=== PATIENT | female | born 1995 | race Caucasian/White ===

== ENCOUNTER 2016-08-07 13:59 | Day surgery (SDC) | payer OTHER ==
[2016-08-07] MEDS ORDERED: ceFAZolin 1 GM VIAL ONE (14:10)
[2016-08-07] MEDS ORDERED: LACTATED RINGERS 1,000 ML IV ONE ×2 (14:45→16:51)
[2016-08-07] MEDS ORDERED: ONDANSETRON 4 MG/2 ML VIAL IVP ONE (16:00)
[2016-08-07] MEDS ORDERED: LIDOCAINE-MPF 2% 5 ML VIAL IM ONE (16:00)
[2016-08-07] MEDS ORDERED: PROPOFOL 200 MG/20 ML VIAL IVP ONE (16:00)
[2016-08-07] MEDS ORDERED: DEXAMETHASONE 4 MG/ML VIAL IVP ONE (16:00)
[2016-08-07] MEDS ORDERED: fentaNYL 100 MCG/2 ML VIAL IVP ONE (16:00)
[2016-08-07] MEDS ORDERED: MIDAZOLAM 2 MG/2 ML VIAL IVP ONE (16:00)
[2016-08-07] MEDS ORDERED: HYDROcod/ACETAM 10 MG/325 MG TABLET ONE (17:19)
== END 2016-08-07 14:00 | disposition home or self-care (01) ==
PROC: 0U9LXZZ Drainage of Vestibular Gland, External Approach (ICD-10-PCS; principal; 2016-08-07 15:00)
DX: N75.1 Abscess of Bartholin's gland (principal)
CPT/HCPCS: 56440; 81025; A9270; J7120

== ENCOUNTER 2017-06-21 12:25 | Emergency (ER) | payer OTHER ==
[2017-06-21] MEDS ORDERED: HYDROmorphone 1 MG/ML SYRINGE IM STA (12:38)
--- NOTE | 2017-06-21 12:39 | ED Physician Documentation ---
PD HPI FEMALE - Stated complaint Stated Complaint: FEMALE - Chief complaint Chief Complaint: UTI - History obtained from History obtained from: Patient - History of Present Illness Timing - onset: Other (She has recurrent Bartholin's cyst and abscesses. She had an incision and drainage of one on at an urgent care clinic and [place]. She has had much more pain with this then she usually has had with other Bartholin's cyst incision and drainages. No fever though. 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 - Present Medications Home Medications: Ambulatory Orders Medication Instructions Recorded Confirmed HYDROcod/ACETAM 5/325 [[place] 5/325] 1 - 2 ea PO Q6H PRN #15 tablet 06/21/17 - Allergies Allergies/Adverse Reactions: Allergies Allergy/AdvReac Type Severity Reaction Status Date / Time No Known Drug Allergies Allergy Verified 06/21/17 12:30 - Social History Does the pt smoke?: No Smoking Status: Never smoker Does the pt drink ETOH?: No Does the pt have substance abuse?: No - Immunizations Immunizations are current?: Yes - POLST Patient has POLST: No PD ED PE NORMAL - Vitals Vital signs reviewed: Yes - General General: Alert and oriented X 3, Other (She appears to be in pain and she is tearful.) - Abdomen Abdomen: Soft, Non tender - Female Female : Vp Ancillary present (Dee Johns RN), Other (Golf ball sized left labial abscess) - Derm Derm: Normal color, Warm and dry - Extremities Extremities: No edema, No calf tenderness / cord - Neuro Neuro: Alert and oriented X 3, Normal speech - Psych Psych: Normal mood, Normal affect Results - Vitals Vitals: Vital Signs - 24 hr 06/21/17 06/21/17 06/21/17 12:27 13:00 13:20 Temperature 36.8 C 37.0 C Heart Rate 79 81 73 Respiratory 18 18 16 Rate Blood Pressure 130/83 H 129/87 H O2 Saturation 100 99 06/21/17 06/21/1706/21/17 13:35 13:43 13:53 Temperature Heart Rate 73 137 H 92 Respiratory 16 16 12 Rate Blood Pressure 138/86 H 134/97 H 122/66 O2 Saturation 100 100 100 06/21/17 06/21/17 06/21/17 14:08 14:25 15:06 Temperature Heart Rate 114 H 76 105 H Respiratory 24 16 12 Rate Blood Pressure 135/91 H 125/83 H 120/65 O2 Saturation 100 100 100 06/21/17 06/21/17 06/21/17 15:30 16:23 17:30 Temperature 36.7 C Heart Rate 92 80 88 Respiratory 12 12 Rate Blood Pressure 103/56 L 100/61 109/66 O2 Saturation 100 100 100 06/21/17 18:24 Temperature Heart Rate 84 Respiratory 18 Rate Blood Pressure 104/62 O2 Saturation 99 Oxygen O2 Source Room air Oxygen Flow Rate 2.5 Procedures - Abscess I&D (location) Left bartholins cyst Preparation: Betadine, Lidocaine 1%, Conscious sedation Incision: Incised with scalpel, Purulent drainage (a lot), Loculations broken, Packed (with word catheter) Other: Pt tolerated well, Dressing applied. No: Antibiotic prescribed (already on keflex) - Procedural sedation Sedation prep: Informed consent, Time out completed, Last meal (none today), AHA 1 - healthy, IV O2 monitor, ET CO2 monitor, RT present Sedation medications: ketamine (140mg) Patient status during sedation: Responds to tactile, Vitals remained stable ( other than tachycardia), Maintained airway. No: Respiratory depression, Hypoxia , Needed resp assistance PD MEDICAL DECISION MAKING - ED course ED course: She has a very large Bartholin's abscess, she was sedated for incision and drainage which went well and a Word catheter was placed. She had a fairly long return to normal and some emergence phenomenon which was treated with divided doses of Ativan. Departure - Departure Disposition: 01 Home, Self Care Clinical Impression: Abscess of Bartholin's gland Condition: Good Record reviewed to determine appropriate education?: Yes Instructions: ED Bartholins Cyst IandD Follow-Up: Yenny Nobles DO [Provider Admit Priv/Credential] - Prescriptions: HYDROcod/ACETAM 5/325 [[place] 5/325] 1 - 2 ea PO Q6H PRN #15 tablet PRN Reason: Pain Comments: Continue the antibiotic that you are taking. Return if worse. Follow-up with the cosmetology instructor, Dr. Almonte is retiring soon but I put his partner's name on this form.
[2017-06-21] MEDS ORDERED: HYDROmorphone 1 MG/ML SYRINGE ONE (12:56)
[2017-06-21] MEDS ORDERED: SODIUM CHLORIDE 0.9% 1,000 ML IV ONE (13:15)
[2017-06-21] MEDS ORDERED: KETAMINE 500 MG/10 ML VIAL ONE (13:34)
[2017-06-21] MEDS ORDERED: BUFFERED LIDOCAINE 10 ML SYRINGE ONE (13:34)
[2017-06-21] MEDS ORDERED: KETAMINE 500 MG/10 ML VIAL IVP STA (13:47)
[2017-06-21] MEDS ORDERED: LORazepam 2 MG/ML VIAL IVP STA ×2 (14:05→14:21)
[2017-06-21] MEDS ORDERED: LORazepam 2 MG/ML VIAL ONE ×2 (14:12→14:28)
[2017-06-21] MEDS ORDERED: HYDROcod/ACET 5/325 Prepack 6 PO STA (19:04)
[2017-06-21] MEDS ORDERED: HYDROcod/ACET 5/325 Prepack 6 PO ONE (19:26)
[2017-06-21] MEDS ORDERED: ONDANSETRON ODT 4 MG TABLET TL STA (19:39)
[2017-06-21] MEDS ORDERED: ONDANSETRON ODT 4 MG TABLET ONE (19:46)
[2017-06-21 19:54] VITALS: BP 106/65
== END 2017-06-21 20:25 | disposition home or self-care (01) ==
LOC: ED 12:25
DX: N75.1 Abscess of Bartholin's gland (principal)
CPT/HCPCS: 56420; 94770; 96361; 96372; 96374; 99283; 99285; J1170; J2060; Q0162

== ENCOUNTER 2017-10-23 17:03 | Outpatient (CLI) | payer OTHER ==
--- NOTE | 2017-10-24 00:14 | Ultrasound Report ---
EXAM: PELVIC ULTRASOUND EXAM DATE: 10/23/2017 06:05 PM. CLINICAL HISTORY: PELVIC AND PERINEAL PAIN. COMPARISON: None. TECHNIQUE: Realtime transabdominal pelvic scan performed to identify the uterus and adnexa and as an overview of other pelvic structures, followed by transvaginal scan to provide greater detail of the u terus and adnexa, with static image documentation. FINDINGS: Uterus: 8 x 3.8 x 4.7 cm, volume 74 cc. Anteverted position. Normal overall size and echotexture. Masses: None. Endometrium: 8.3 mm. Normal. Cervix: Unremarkable. Right Ovary: 2.8 x 1.5 x 1.7 cm, volume 3.7 cc. Normal echotexture and blood flow. Left Ovary: 2.2 x 1 x 2.4 cm, volume 2.7 cc. Normal echotexture and blood flow. Left ovary is seen on ly on the transabdominal images, located high. Free Fluid: Small simple appearing free fluid seen in the posterior cul-de-sac. IMPRESSION: 1. Uterus and ovaries appear within normal limits. 2. Small simple appearing free fluid seen in the posterior cul-de-sac. [facility] Referring Provider Line: [phone] SITE ID: [id number]
== END 2017-10-23 17:04 | disposition home or self-care (01) ==
LOC: DI 17:03
PROVIDERS: ATTEND Obstetrics & Gynecology
DX: R10.2 Pelvic and perineal pain (principal)
CPT/HCPCS: 76830; 76856

== ENCOUNTER 2017-12-15 12:34 | Emergency (ER) | payer OTHER ==
--- NOTE | 2017-12-15 13:50 | ED Physician Documentation ---
PD HPI NVD - Stated complaint Stated Complaint: VOMITTING/7WK OB - Chief complaint Chief Complaint: Abd Pain - History obtained from History obtained from: Patient - History of Present Illness Timing - onset: How many days ago (2-3) Timing - duration: Days (2-3) Timing - details: Abrupt onset Associated symptoms: Other (she is 7 weeks pregnanct by dates.). No: Fever, Abdominal pain, Chest pain, Vaginal bleeding, Vaginal dc Contributing factors: No: Sick contact, Bad food, Travel, Recent antibiotics Improved by: No: Eating Worsened by: Eating Similar symptoms before: Has not had sx before Recently seen: Not recently seen (has OB appt in couple of weeks.) Review of Systems Constitutional: reports: Myalgias. denies: Fever, Chills Nose: denies: Rhinorrhea / runny nose, Congestion Throat: denies: Sore throat Cardiac: denies: Chest pain / pressure Respiratory: reports: Cough. denies: Dyspnea GI: reports: Abdominal Pain. 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 - Present Medications Home Medications: Ambulatory Orders Medication Instructions Recorded Confirmed Dexamethasone [Decadron] 4 mg PO DAILY #5 tablet 12/15/17 Ondansetron Odt [Zofran] 4 mg TL Q6H PRN #15 tablet 12/15/17 Pyridoxine HCl [Vitamin B-6] 100 mg PO BID #40 tablet 12/15/17 - Allergies Allergies/Adverse Reactions: Allergies Allergy/AdvReac Type Severity Reaction Status Date / Time No Known Drug Allergies Allergy Verified 12/15/17 13:35 - Social History Does the pt smoke?: No Smoking Status: Never smoker Does the pt drink ETOH?: No Does the pt have substance abuse?: No - Immunizations Immunizations are current?: Yes - POLST Patient has POLST: No PD ED PE NORMAL - Vitals Vital signs reviewed: Yes - General General: Alert and oriented X 3, Well developed/nourished - HEENT HEENT: Pharynx benign - Neck Neck: Supple, no meningeal sign, Thyroid normal - Cardiac Cardiac: RRR, No murmur - Respiratory Respiratory: Clear bilaterally - Abdomen Abdomen: Normal bowel sounds, Soft, Non tender, Non distended - Female Female : Deferred Results - Vitals Vitals: Oxygen O2 Source Room air - Labs Labs: Laboratory Tests 12/15/17 12/15/17 12/15/17 14:20 14:20 14:20 WBC 11.3 H RBC 4.56 Hgb 14.8 Hct 43.2 MCV 94.7 MCH 32.4 H MCHC 34.3 RDW 12.7 Plt Count 210 MPV 8.8 Neut # (Auto) 8.2 H Lymph # (Auto) 2.5 Person # (Auto) 0.5 Eos # (Auto) 0.0 Baso # (Auto) 0.0 Absolute Nucleated RBC 0.00 Nucleated RBC % 0.0 Sodium 132 L Potassium 4.1 Chloride 102 Carbon Dioxide 20 L Anion Gap 10.0 BUN 7 Creatinine 0.6 Estimated GFR (MDRD) 126 Glucose 87 Calcium 9.1 Total Bilirubin 1.2 H AST 18 ALT 12 Alkaline Phosphatase 43 Total Protein 7.1 Albumin 3.9 Globulin 3.2 Albumin/Globulin Ratio 1.2 Lipase 23 HCG, Quant 61632.00 Urine Color Urine Clarity Urine pH Ur Specific [place] Urine Protein Urine Glucose (UA) Urine Ketones Urine Occult Blood Urine Nitrite Urine Bilirubin Urine Urobilinogen Ur Leukocyte Esterase Urine RBC Urine WBC Ur Squamous Epith Cells Urine Bacteria Urine Mucus Ur Microscopic Review Urine Culture Comments 12/15/17 16:52 WBC RBC Hgb Hct MCV MCH MCHC RDW Plt Count MPV Neut # (Auto) Lymph # (Auto) Person # (Auto) Eos # (Auto) Baso # (Auto) Absolute Nucleated RBC Nucleated RBC % Sodium Potassium Chloride Carbon Dioxide Anion Gap BUN Creatinine Estimated GFR (MDRD) Glucose Calcium Total Bilirubin AST ALT Alkaline Phosphatase Total Protein Albumin Globulin Albumin/Globulin Ratio Lipase HCG, Quant Urine Color DARK YELLOW Urine Clarity CLOUDY Urine pH 6.0 Ur Specific [place] >=1.030 H Urine Protein 30 H Urine Glucose (UA) NEGATIVE Urine Ketones >=80 H Urine Occult Blood NEGATIVE Urine Nitrite NEGATIVE Urine Bilirubin NEGATIVE Urine Urobilinogen 0.2 (NORMAL) Ur Leukocyte Esterase TRACE H Urine RBC 0-5 Urine WBC 6-10 H Ur Squamous Epith Cells MOD Squamous H Urine Bacteria Rare Urine Mucus Marked Strands Ur Microscopic Review INDICATED Urine Culture Comments NOT INDICATED PD MEDICAL DECISION MAKING - ED course Complexity details: reviewed results, re-evaluated patient (feeling much better with IV fluids and meds. ), considered differential, d/w patient Departure - Departure Disposition: 01 Home, Self Care Clinical Impression: Dehydration Vomiting Qualifiers: Vomiting type: unspecified Vomiting Intractability: intractable Nausea presence : with nausea Qualified Code(s): R11.2 - Nausea with vomiting, unspecified Qualifiers: Weeks of gestation: less than 8 weeks Qualified Code(s): Z3A.01 - Less than 8 weeks gestation of Condition: Stable Record reviewed to determine appropriate education?: Yes Instructions: ED Preg Morning Sickness Follow-Up: Yenny Nobles DO [Provider Admit Priv/Credential] - Prescriptions: Dexamethasone [Decadron] 4 mg PO DAILY #5 tablet Ondansetron Odt [Zofran] 4 mg TL Q6H PRN #15 tablet PRN Reason: Nausea / Vomiting Pyridoxine HCl [Vitamin B-6] 100 mg PO BID #40 tablet Comments: Small frequent fluids. Vitamin B6 twice daily for the next few weeks. Decadron for nausea as well daily for the next 5 days. Add ondansetron if needed for nausea every 4-6 hours. Follow-up with DIGITAL STRATEGY SPECIALIST in the next several days, call for an appointment. Return if needed. Discharge Date/Time: 12/15/17 17:46
[2017-12-15] MEDS ORDERED: SODIUM CHLORIDE 0.9% 1,000 ML IV ONE ×2 (14:11→14:12)
[2017-12-15] MEDS ORDERED: ONDANSETRON 4 MG/2 ML VIAL IVP STA ×2 (14:11→14:56)
[2017-12-15] MEDS ORDERED: KETOROLAC 60 MG/2 ML VIAL IVP STA (14:11)
[2017-12-15] MEDS ORDERED: FAMOTIDINE 20 MG/50 ML 50 ML IV ONE (14:12)
[2017-12-15 14:26] LABS: BASOPHILS % (AUTO) 0.4 %; EOSINOPHILS % (AUTO) 0.4 %; HGB - HEMOGLOBIN 14.8 g/dL (12.0-16.0); LYMPHOCYTES # (AUTO) 2.5 10^3/uL (1.5-3.5); LYMPHOCYTES % (AUTO) 22.2 %; MEAN CORPUSCULAR HEMOGLOBIN 32.4 pg (27.0-31.0); MEAN CORPUSCULAR HGB CONC 34.3 g/dL (32.0-36.0); MEAN CORPUSCULAR VOLUME 94.7 fL (81.0-99.0); MEAN PLATELET VOLUME 8.8 fL (7.9-10.8); MONOCYTES # (AUTO) 0.5 10^3/uL (0.0-1.0); MONOCYTES % (AUTO) 4.6 %; NEUTROPHILS # (AUTO) 8.2 10^3/uL (1.5-6.6); NEUTROPHILS % (AUTO) 72.4 %; PLT - PLATELET COUNT 210 10^3/uL (130-450); RED BLOOD COUNT 4.56 10^6/uL (4.20-5.40); RED CELL DISTRIBUTION WIDTH 12.7 % (12.0-15.0); WHITE BLOOD COUNT 11.3 x10^3/uL (4.8-10.8)
[2017-12-15 14:41] LABS: ALBUMIN 3.9 g/dL (3.2-5.5); ALBUMIN/GLOBULIN RATIO 1.2 (1.0-2.2); BILIRUBIN,TOTAL 1.2 mg/dL (0.2-1.0); CALCIUM 9.1 mg/dL (8.5-10.3); CREATININE 0.6 mg/dL (0.4-1.0); TOTAL PROTEIN 7.1 g/dL (6.7-8.2)
[2017-12-15] MEDS ORDERED: DEXAMETHASONE 10 MG/ML VIAL IVP STA (14:56)
[2017-12-15 17:06] LABS: GLUCOSE, URINE (UA) NEGATIVE (NEGATIVE); KETONES,URINE (UA) >=80 mg/dL (NEGATIVE); LEUKOCYTE ESTERASE, URINE TRACE (NEGATIVE); NITRITE,URINE NEGATIVE (NEGATIVE); OCCULT BLOOD,URINE NEGATIVE (NEGATIVE); PROTEIN,URINE 30 mg/dL (NEGATIVE); UROBILINOGEN,URINE 0.2 (NORMAL) E.U./dL (NORMAL)
[2017-12-15 17:08] LABS: CLARITY,URINE CLOUDY (CLEAR)
[2017-12-15 17:18] VITALS: BP 104/53
[2017-12-15 17:18] LABS: BILIRUBIN,URINE NEGATIVE (NEGATIVE); ICTOTEST,URINE NEGATIVE
[2017-12-15 17:22] LABS: BACTERIA,URINE Rare /HPF (None Seen); MUCUS,URINE Marked Strands; RBC,URINE 0-5 /HPF (0-5); SQUAMOUS EPITHELIAL CELL,UR MOD Squamous (<= Few)
== END 2017-12-15 17:46 | disposition home or self-care (01) ==
LOC: ED 12:34
DX: R10.9 Unspecified abdominal pain (principal); O21.1 Hyperemesis gravidarum with metabolic disturbance; Z3A.01 Less than 8 weeks gestation of pregnancy
CPT/HCPCS: 36415; 80053; 81001; 81003; 83690; 84702; 85025; 87086; 96361; 96365; 96375; 96376; 99283; 99284

== ENCOUNTER 2017-12-31 07:10 | Emergency (ER) | payer OTHER ==
[2017-12-31] MEDS ORDERED: SODIUM CHLORIDE 0.9% 1,000 ML IV ONE (07:27)
[2017-12-31] MEDS ORDERED: ONDANSETRON 4 MG/2 ML VIAL IVP STA (07:27)
--- NOTE | 2017-12-31 07:35 | ED Physician Documentation ---
PD HPI NVD - Stated complaint Stated Complaint: VOMITING/9WKS - Chief complaint Chief Complaint: Abd Pain - History obtained from History obtained from: Patient - History of Present Illness Timing - duration: Days (2) Timing - details: Still present Associated symptoms: No: Fever, Abdominal pain, Dysuria Contributing factors: Other () Recently seen: Emergency Dept (Seen here 2.5 weeks ago with similar symptoms.) - Additonal information Additional information: The patient is a 22-year-old female who presents with vomiting that has been ongoing for the past 2 days. She is currently at 9 weeks gestation. She denies fever, abdominal pain, diarrhea, or dysuria. She does report generalized headache. Review of her medical record reveals that she was seen here 2 and half weeks ago with similar symptoms, and was treated with IV fluids , ondansetron, and dexamethasone. Review of Systems Constitutional: denies: Fever Ears: denies: Tinnitus/ringing Nose: denies: Congestion Throat: denies: Sore throat Cardiac: denies: Chest pain / pressure Respiratory: denies: Dyspnea, Cough GI: reports: Nausea, Vomiting. denies: Abdominal Pain, Diarrhea : reports: Now EGA (9 weeks gestation). denies: Dysuria, Vaginal bleeding Skin: denies: Rash Musculoskeletal: denies: Back pain Neurologic: reports: Headache. 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 - Present Medications Home Medications: Ambulatory Orders Medication Instructions Recorded Confirmed Pyridoxine HCl [Vitamin B-6] 100 mg PO BID #40 tablet 12/15/17 Ondansetron Odt [Zofran] 4 mg TL Q6H PRN #10 tablet 12/31/17 - Allergies Allergies/Adverse Reactions: Allergies Allergy/AdvReac Type Severity Reaction Status Date / Time No Known Drug Allergies Allergy Verified 12/31/17 07:20 - Social History Does the pt smoke?: No Smoking Status: Never smoker Does the pt drink ETOH?: No Does the pt have substance abuse?: No - Immunizations Immunizations are current?: Yes - POLST Patient has POLST: No PD ED PE NORMAL - Vitals Vital signs reviewed: Yes (normal) - General General: Alert and oriented X 3, Well developed/nourished - HEENT HEENT: Atraumatic, Moist mucous membranes, Pharynx benign - Neck Neck: Supple, no meningeal sign, No adenopathy - Cardiac Cardiac: RRR, No murmur - Respiratory Respiratory: No respiratory distress, Clear bilaterally - Abdomen Abdomen: Normal bowel sounds, Soft, Non tender - Back Back: No CVA TTP - Derm Derm: No rash - Extremities Extremities: No edema, No calf tenderness / cord - Neuro Neuro: Alert and oriented X 3, No motor deficit, Normal speech Results - Vitals Vitals: Oxygen O2 Source Room air - Labs Labs: Laboratory Tests 12/31/17 08:46 Urine Color YELLOW Urine Clarity HAZY Urine pH 6.0 Ur Specific [place] >=1.030 H Urine Protein TRACE Urine Glucose (UA) NEGATIVE Urine Ketones 15 H Urine Occult Blood NEGATIVE Urine Nitrite NEGATIVE Urine Bilirubin NEGATIVE Urine Urobilinogen 0.2 (NORMAL) Ur Leukocyte Esterase NEGATIVE Urine RBC 0-5 Urine WBC 11-25 H Ur Squamous Epith Cells MANY Squamous H Urine Bacteria Many H Urine Mucus Marked Strands Ur Microscopic Review INDICATED Urine Culture Comments NOT INDICATED PD MEDICAL DECISION MAKING - ED course Complexity details: reviewed old records, reviewed results, re-evaluated patient , considered differential, d/w patient, d/w family ED course: Patient's presentation is most consistent with vomiting associated with first trimester . Her examination does not suggest acute abdomen, cholecystitis, pancreatitis, bowel obstruction, or pyelonephritis. Clean-catch urine specimen is contaminated, but is negative for leukocyte esterase and nitrites, so I doubt urinary tract infection. Treatment in the emergency department included administration of normal saline 1 L IV and ondansetron 4 mg IV. Her symptoms resolved with the above treatment. She is being discharged with prescription for ondansetron. I discussed with her and her male second mate symptomatic treatment, outpatient follow-up, as well as potentially worrisome signs or symptoms that should prompt reevaluation in the emergency department. - Sepsis Event Vital Signs: Oxygen O2 Source Room air Departure - Departure Disposition: 01 Home, Self Care Clinical Impression: Vomiting affecting , First trimester Condition: Stable Instructions: ED Preg Morning Sickness Follow-Up: Yenny Nobles DO [Provider Admit Priv/Credential] - Prescriptions: Ondansetron Odt [Zofran] 4 mg TL Q6H PRN #10 tablet PRN Reason: Nausea / Vomiting Comments: Drink plenty of fluids. You can use Zofran as prescribed if needed for recurrent nausea. Follow up with your head correction officer as planned. Return to the emergency department if you develop persistent vomiting, abdominal pain, or otherwise worsening symptoms. Discharge Date/Time: 12/31/17 10:05
[2017-12-31 08:21] VITALS: BP 96/55
[2017-12-31 09:20] LABS: BILIRUBIN,URINE NEGATIVE (NEGATIVE); GLUCOSE, URINE (UA) NEGATIVE (NEGATIVE); KETONES,URINE (UA) 15 mg/dL (NEGATIVE); LEUKOCYTE ESTERASE, URINE NEGATIVE (NEGATIVE); NITRITE,URINE NEGATIVE (NEGATIVE); OCCULT BLOOD,URINE NEGATIVE (NEGATIVE); PROTEIN,URINE TRACE mg/dL (NEGATIVE); UROBILINOGEN,URINE 0.2 (NORMAL) E.U./dL (NORMAL)
[2017-12-31 09:32] LABS: CLARITY,URINE HAZY (CLEAR)
[2017-12-31 09:37] LABS: BACTERIA,URINE Many /HPF (None Seen); MUCUS,URINE Marked Strands; RBC,URINE 0-5 /HPF (0-5); SQUAMOUS EPITHELIAL CELL,UR MANY Squamous (<= Few)
== END 2017-12-31 10:05 | disposition home or self-care (01) ==
LOC: ED 07:10
DX: O21.9 Vomiting of pregnancy, unspecified (principal); Z3A.09 9 weeks gestation of pregnancy
CPT/HCPCS: 81001; 81003; 87086; 96361; 96374; 99283

== ENCOUNTER 2018-01-08 08:00 | Outpatient (CLI) | payer OTHER ==
[2018-01-08 16:26] LABS: MUDS CUTOFF CONCENTRATIONS CUTOFF CONC BELOW:
[2018-01-08 16:42] LABS: AMPHETAMINE SCREEN,URINE NEGATIVE (NEGATIVE); BENZODIAZEPINES SCREEN, URINE NEGATIVE (NEGATIVE); COCAINE SCREEN URINE NEGATIVE (NEGATIVE); METHADONE SCREEN, URINE NEGATIVE (NEGATIVE); METHAMPHETAMINES SCREEN, URINE NEGATIVE (NEGATIVE); OPIATE SCREEN, URINE NEGATIVE (NEGATIVE); OXYCODONE SCREEN, URINE NEGATIVE (NEGATIVE); PROPOXYPHENE SCREEN, URINE NEGATIVE (NEGATIVE); TRICYCLIC ANTIDEPRESSANT,URINE NEGATIVE (NEGATIVE)
== END 2018-01-08 08:01 | disposition home or self-care (01) ==
LOC: LAB.R 08:00
PROVIDERS: ATTEND Obstetrics & Gynecology
DX: Z36.9 Encounter for antenatal screening, unspecified (principal)
CPT/HCPCS: 80306; 87491; 87591

== ENCOUNTER 2018-01-13 00:19 | Emergency (ER) | payer OTHER ==
[2018-01-13] MEDS ORDERED: ONDANSETRON 4 MG/2 ML VIAL IVP STA (01:40)
[2018-01-13] MEDS ORDERED: SODIUM CHLORIDE 0.9% 1,000 ML IV STA ×2 (01:40→02:47)
[2018-01-13] MEDS ORDERED: ONDANSETRON 4 MG/2 ML VIAL ONE (01:45)
[2018-01-13 02:59] LABS: BASOPHILS % (AUTO) 0.3 %; EOSINOPHILS % (AUTO) 0.2 %; LYMPHOCYTES # (AUTO) 1.1 10^3/uL (1.5-3.5); LYMPHOCYTES % (AUTO) 9.7 %; MEAN CORPUSCULAR HEMOGLOBIN 32.5 pg (27.0-31.0); MEAN CORPUSCULAR HGB CONC 33.2 g/dL (32.0-36.0); MEAN CORPUSCULAR VOLUME 97.9 fL (81.0-99.0); MEAN PLATELET VOLUME 9.3 fL (7.9-10.8); MONOCYTES # (AUTO) 0.3 10^3/uL (0.0-1.0); NEUTROPHILS # (AUTO) 9.7 10^3/uL (1.5-6.6); NEUTROPHILS % (AUTO) 86.8 %; PLT - PLATELET COUNT 233 10^3/uL (130-450); RED BLOOD COUNT 4.29 10^6/uL (4.20-5.40); RED CELL DISTRIBUTION WIDTH 12.8 % (12.0-15.0); WHITE BLOOD COUNT 11.1 x10^3/uL (4.8-10.8)
[2018-01-13 03:06] LABS: ALBUMIN 3.7 g/dL (3.2-5.5); CALCIUM 9.2 mg/dL (8.5-10.3); CREATININE 0.5 mg/dL (0.4-1.0); TOTAL PROTEIN 7.3 g/dL (6.7-8.2)
[2018-01-13 04:32] VITALS: BP 133/79
--- NOTE | 2018-01-13 09:14 | ED Physician Documentation ---
PD HPI NVD - Stated complaint Stated Complaint: 12W ,VOMITING - Chief complaint Chief Complaint: Abd Pain - History obtained from History obtained from: Patient - History of Present Illness Timing - onset: How many days ago (4) Timing - duration: Days Timing - details: Gradual onset, Intermittant Pain level max: 0 Pain level now: 0 Associated symptoms: No: Fever, Abdominal pain, Dysuria, Vaginal bleeding Improved by: Other (no ameliorating factors) Worsened by: Eating Similar symptoms before: Work up / diagnostics (see below), Treatment (see below ) Recently seen: Clinic, Emergency Dept - Additonal information Additional information: patient is approximately 12 weeks , presents with c/o nausea and vomiting x 4 days, uncontrolled with prescribed medications. This is her first , and she has had two previous [facility] ED visits (both were last month) for same problem. She says she was seen by her hub borer recently in the office, had US which revealed IUP, and was prescribed an antinauseant to replace the zofran she had been using. The zofran was working at times, but she noted gradually decreasing length of effect and thus new rx; she does not recall what the new prescription is, but she tried this and it was also not effective today. She has not tolerated any significant PO intake including liquids. Review of Systems Cardiac: reports: Reviewed and negative Respiratory: reports: Reviewed and negative GI: reports: Nausea, Vomiting. 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 - Present Medications Home Medications: Ambulatory Orders Medication Instructions Recorded Confirmed Pyridoxine HCl [Vitamin B-6] 100 mg PO BID #40 tablet 12/15/17 Ondansetron Odt [Zofran] 4 mg TL Q6H PRN #10 tablet 12/31/17 Metoclopramide [Reglan] 10 mg PO Q6H PRN #14 tablet 01/13/18 Ondansetron Odt [Zofran] 4 mg TL Q6H PRN #10 tablet 01/13/18 - Allergies Allergies/Adverse Reactions: Allergies Allergy/AdvReac Type Severity Reaction Status Date / Time No Known Drug Allergies Allergy Verified 01/13/18 00:36 - Social History Does the pt smoke?: No Smoking Status: Never smoker Does the pt drink ETOH?: No Does the pt have substance abuse?: No - Immunizations Immunizations are current?: Yes - POLST Patient has POLST: No PD ED PE NORMAL - Vitals Vital signs reviewed: Yes - General General: Alert and oriented X 3, No acute distress, Well developed/nourished - HEENT HEENT: Moist mucous membranes - Cardiac Cardiac: RRR, No murmur - Respiratory Respiratory: No respiratory distress, Clear bilaterally - Abdomen Abdomen: Normal bowel sounds, Soft, Non tender - Extremities Extremities: No edema Results - Vitals Vitals: Vital Signs - 24 hr 01/13/18 01/13/18 00:35 04:32 Temperature 37 C Heart Rate 107 H 89 Respiratory 17 18 Rate Blood Pressure 125/63 133/79 H O2 Saturation 99 98 Oxygen O2 Source Room air - Labs Labs: Laboratory Tests 01/13/18 01/13/18 01:30 01:30 WBC 11.1 H RBC 4.29 Hgb 14.0 Hct 42.0 MCV 97.9 MCH 32.5 H MCHC 33.2 RDW 12.8 Plt Count 233 MPV 9.3 Neut # (Auto) 9.7 H Lymph # (Auto) 1.1 L [place] # (Auto) 0.3 Eos # (Auto) 0.0 Baso # (Auto) 0.0 Absolute Nucleated RBC 0.00 Nucleated RBC % 0.0 Sodium 134 L Potassium 3.9 Chloride 101 Carbon Dioxide 22 Anion Gap 11.0 BUN 8 Creatinine 0.5 Estimated GFR (MDRD) 156 Glucose 114 H Calcium 9.2 Total Bilirubin 1.0 AST 19 ALT 12 Alkaline Phosphatase 38 L Total Protein 7.3 Albumin 3.7 Globulin 3.6 Albumin/Globulin Ratio 1.0 Lipase 24 PD MEDICAL DECISION MAKING - ED course Complexity details: reviewed old records, reviewed results, re-evaluated patient , considered differential, d/w patient ED course: patient reported improvement in symptoms after IV fluids and IV zofran. last blood tests that I see on [place] are from one month ago, and thus basic blood tests repeated; these results are reassuring. provided with rx for zofran as well as reglan. instructed to return if worse, f/u with hub borer - Sepsis Event Vital Signs: Vital Signs - 24 hr 01/13/18 01/13/18 00:35 04:32 Temperature 37 C Heart Rate 107 H 89 Respiratory 17 18 Rate Blood Pressure 125/63 133/79 H O2 Saturation 99 98 Oxygen O2 Source Room air Departure - Departure Disposition: 01 Home, Self Care Clinical Impression: Vomiting during Condition: Good Instructions: ED Preg Morning Sickness Follow-Up: Yenny Nobles DO [Provider Admit Priv/Credential] - Prescriptions: Metoclopramide [Reglan] 10 mg PO Q6H PRN #14 tablet PRN Reason: Nausea / Vomiting Ondansetron Odt [Zofran] 4 mg TL Q6H PRN #10 tablet PRN Reason: Nausea / Vomiting Comments: If you have nausea or vomiting again, try the metoclopramide. If this does not provide relief of the symptoms after 1 hour, try the ondansetron. Discharge Date/Time: 01/13/18 04:20
== END 2018-01-13 04:20 | disposition home or self-care (01) ==
LOC: ED 00:19
DX: O21.9 Vomiting of pregnancy, unspecified (principal); Z3A.12 12 weeks gestation of pregnancy
CPT/HCPCS: 36415; 80053; 83690; 85025; 96361; 96374; 99283

== ENCOUNTER 2018-01-21 17:10 | Emergency (ER) | payer OTHER ==
[2018-01-21] MEDS ORDERED: ONDANSETRON ODT 4 MG TABLET TL STA (17:59)
[2018-01-21] MEDS ORDERED: HYDROcod/ACETAM 5/325 MG TABLET PO STA (17:59)
--- NOTE | 2018-01-21 18:00 | ED Physician Documentation ---
History of Present Illness - Stated complaint Stated Complaint: FEMALE - Chief complaint Chief Complaint: General - History obtained from History obtained from: Patient - History of Present Illness Timing: Yesterday (She is 13 weeks and 5 days and has recurrent Bartholin cyst, she has had a painful one for the last couple of days. She is already on amoxicillin.) Review of Systems Constitutional: denies: Fever, Chills Respiratory: denies: Dyspnea, Cough GI: reports: Nausea, Vomiting. denies: Abdominal Pain PD PAST MEDICAL HISTORY - Past Medical History Cardiovascular: None Respiratory: None Endocrine/Autoimmune: None GI: None : None HEENT: None Musculoskeletal: None Derm: None - Past Surgical History Past Surgical History: No /PARLIAMENTARY COUNSEL: Other - Present Medications Home Medications: Ambulatory Orders Medication Instructions Recorded Confirmed Ondansetron Odt [Zofran] 4 mg TL Q6H PRN #10 tablet 01/13/18 HYDROcod/ACETAM 5/325 [[place] 5/325] 1 - 2 ea PO Q6H PRN #10 tablet 01/21/18 Pnv No.122/Iron/Folic Acid 01/21/18 [ Multi Tablet] - Allergies Allergies/Adverse Reactions: Allergies Allergy/AdvReac Type Severity Reaction Status Date / Time No Known Drug Allergies Allergy Verified 01/21/18 17:17 - Social History Does the pt smoke?: No Smoking Status: Never smoker Does the pt drink ETOH?: No Does the pt have substance abuse?: No - Immunizations Immunizations are current?: Yes - POLST Patient has POLST: No PD ED PE NORMAL - Vitals Vital signs reviewed: Yes - General General: Alert and oriented X 3, No acute distress - Neck Neck: Supple, no meningeal sign, No bony TTP - Neuro Neuro: Alert and oriented X 3, Normal speech Results - Vitals Vitals: Vital Signs - 24 hr 01/21/18 17:14 Temperature 36.8 C Heart Rate 100 Respiratory 16 Rate Blood Pressure 124/67 O2 Saturation 98 Oxygen O2 Source Room air Procedures - Abscess I&D (location) L bartholins Preparation: Other (Done with the nurse, Jocelyn JAMES present and chaperoning. When I went into exam in it and do I&D, there was already a freely draining sinus tract with copious pus coming out and it was big enough to just basically work the Word catheter into.) PD MEDICAL DECISION MAKING - Sepsis Event Vital Signs: Vital Signs - 24 hr 01/21/18 17:14 Temperature 36.8 C Heart Rate 100 Respiratory 16 Rate Blood Pressure 124/67 O2 Saturation 98 Oxygen O2 Source Room air Departure - Departure Disposition: 01 Home, Self Care Clinical Impression: Abscess of Bartholin's gland Condition: Good Record reviewed to determine appropriate education?: Yes Instructions: ED Bartholins Cyst IandD Prescriptions: HYDROcod/ACETAM 5/325 [[place] 5/325] 1 - 2 ea PO Q6H PRN #10 tablet PRN Reason: Pain Comments: Follow-up with Dr. Nobles next week for wound check and she will decide at that point when the catheter can actually come out. Return if worse.
[2018-01-21] MEDS ORDERED: LIDOCAINE 1%-EPI 1:100000 30 ML MDV ONE (18:39)
[2018-01-21 20:17] VITALS: BP 110/64
== END 2018-01-21 20:17 | disposition home or self-care (01) ==
LOC: ED 17:10
DX: O23.591 Infection of other part of genital tract in pregnancy, first trimester (principal); Z3A.13 13 weeks gestation of pregnancy
CPT/HCPCS: 56420; 99283; A9270; Q0162

== ENCOUNTER 2018-02-05 15:36 | Outpatient (CLI) | payer OTHER ==
[2018-02-05 16:11] LABS: BASOPHILS # (AUTO) 0.1 10^3/uL (0.0-0.1); BASOPHILS % (AUTO) 0.5 %; EOSINOPHILS # (AUTO) 0.3 10^3/uL (0.0-0.7); EOSINOPHILS % (AUTO) 2.8 %; HGB - HEMOGLOBIN 13.8 g/dL (12.0-16.0); LYMPHOCYTES # (AUTO) 2.3 10^3/uL (1.5-3.5); LYMPHOCYTES % (AUTO) 19.3 %; MEAN CORPUSCULAR HEMOGLOBIN 33.3 pg (27.0-31.0); MEAN CORPUSCULAR VOLUME 98.2 fL (81.0-99.0); MEAN PLATELET VOLUME 8.8 fL (7.9-10.8); MONOCYTES # (AUTO) 0.7 10^3/uL (0.0-1.0); MONOCYTES % (AUTO) 6.2 %; NEUTROPHILS # (AUTO) 8.5 10^3/uL (1.5-6.6); NEUTROPHILS % (AUTO) 71.2 %; PLT - PLATELET COUNT 246 10^3/uL (130-450); RED BLOOD COUNT 4.13 10^6/uL (4.20-5.40); RED CELL DISTRIBUTION WIDTH 13.5 % (12.0-15.0); WHITE BLOOD COUNT 11.9 x10^3/uL (4.8-10.8)
[2018-02-05 16:20] LABS: BILIRUBIN,URINE NEGATIVE (NEGATIVE); GLUCOSE, URINE (UA) NEGATIVE (NEGATIVE); KETONES,URINE (UA) NEGATIVE (NEGATIVE); LEUKOCYTE ESTERASE, URINE NEGATIVE (NEGATIVE); NITRITE,URINE NEGATIVE (NEGATIVE); OCCULT BLOOD,URINE NEGATIVE (NEGATIVE); PROTEIN,URINE NEGATIVE (NEGATIVE); UROBILINOGEN,URINE 0.2 (NORMAL) E.U./dL (NORMAL)
[2018-02-05 16:27] LABS: CLARITY,URINE CLEAR (CLEAR)
[2018-02-05 16:28] LABS: BACTERIA,URINE Rare /HPF (None Seen); MUCUS,URINE Marked Strands; RBC,URINE None Seen /HPF (0-5); SQUAMOUS EPITHELIAL CELL,UR FEW Squamous (<= Few)
[2018-02-05 17:53] LABS: FREE T3 4.25 pg/mL (2.5-3.9)
[2018-02-05 17:54] LABS: THYROID STIMULATING HORMONE 0.89 uIU/mL (0.34-5.60)
[2018-02-05 17:55] LABS: FREE T4 (FREE THYROXINE) 0.91 ng/dL (0.58-1.64)
[2018-02-05 18:03] LABS: FOLATE 18.82 ng/mL (5.90 - >24.8)
[2018-02-06 13:16] LABS: HEPATITIS B SURFACE ANTIGEN NON-REACTIVE (NON-REACTIVE); HIV AG/AB 4TH GEN NON-REACTIVE (NON-REACTIVE)
== END 2018-02-05 15:37 | disposition home or self-care (01) ==
LOC: LAB 15:36
PROVIDERS: ATTEND Obstetrics & Gynecology
DX: Z36.9 Encounter for antenatal screening, unspecified (principal); R00.2 Palpitations; D53.9 Nutritional anemia, unspecified
CPT/HCPCS: 36415; 81001; 81599; 82105; 82607; 82677; 82746; 84439; 84443; 84481; 84702; 85025; 86336; 86592; 86762; 86850; 86900; 86901; 87340; 87389; 93005

== ENCOUNTER 2018-03-10 12:52 | Outpatient (CLI) | payer OTHER ==
--- NOTE | 2018-03-11 11:13 | Ultrasound Report ---
Reason: ENCOUNTER FOR SCREENING FOR MALFORMATION Procedure Date: 03/10/2018 Accession Number: [id number] / [id number] Procedure: US - OB Detailed Eval CPT Code: FULL RESULT: EXAM: COMPLETE OBSTETRICAL ULTRASOUND EXAM DATE: 03/10/2018 03:05 PM. CLINICAL HISTORY: anatomic survey. COMPARISON: 03/10/2018. TECHNIQUE: Real-time sonographic evaluation of the fetus performed by the price clerk. Multiple patient representative static images were saved for review. DATING: EGA 19 weeks/4 days with RIVERA 07/31/2018 based on last menstrual period. EGA 19 weeks/5 days with RIVERA 07/30/2018 based on the current ultrasound. GENERAL EVALUATION Maya . Cardiac activity: 132 bpm. movement: Visualized. Presentation: Cephalic. Placenta: Posterior position. No evidence for previa. Umbilical cord: 3 vessel cord. Central placental cord origin. Amniotic fluid: Subjectively normal. MVP 13.2 cm. BIOMETRY Bi-Parietal Diameter (BPD): 4.4 cm, 19 weeks/2 days Head Circumference (HC): 17.2 cm, 19 weeks/6 days Abdominal Circumference (AC): 14.7 cm, 20 weeks/0 days Femur Length (FL): 3.2 cm, 19 weeks/6 days Estimated Weight: 320 gm, 64 percentile. ANATOMY Left renal pelvis measures 4.8 mm, top normal. The right renal pelvis measures 5.1 mm, mildly above normal. Additionally, 1.1 mm pericardial fluid is noted. The intracranial structures, profile, face/nose/lips, spine, 4 chamber heart and outflow tracts, stomach, abdominal wall and cord insertion, diaphragm, bladder, and extremities were visualized and demonstrate no abnormality. MATERNAL STRUCTURES Uterus: Unremarkable. Cervix: Long and closed. Transabdominal length 4.6 cm. Right ovary/adnexa: Unremarkable. Left ovary/adnexa: Unremarkable. Free fluid: None. IMPRESSION: 1. Maya live intrauterine with gestational age 19 weeks and 5 days based on current ultrasound. 2. Estimated weight is within expected limits for assigned dating. 3. Mild renal pelviectasis and pericardial fluid. Follow-up sonographic evaluation to assess for resolution versus referral to [facility] for level III ultrasound is recommended. RADIA
== END 2018-03-10 12:53 | disposition home or self-care (01) ==
LOC: DI 12:52
PROVIDERS: ATTEND Obstetrics & Gynecology
DX: Z36.3 Encounter for antenatal screening for malformations (principal)
CPT/HCPCS: 76811

== ENCOUNTER → 2018-04-28 | Outpatient (CLI) | payer OTHER, MEDICAID | LOC: LAB.N 08:00 | PROVIDERS: ATTEND Obstetrics & Gynecology | DX: Z34.90 Encounter for supervision of normal pregnancy, unspecified, unspecified trimester (principal) | CPT/HCPCS: 36415; 82950; 85025; 86850 ==

== ENCOUNTER → 2018-05-14 | Outpatient (CLI) | payer OTHER, MEDICAID ==
[2018-05-14 19:32] LABS: HB2 TOTAL 11.4 g/dL; HEMOGLOBIN A1C 0.32 g/dL; HEMOGLOBIN A1C % 4.7 % (4.6-6.2)
== END ==
LOC: LAB.N 11:12
PROVIDERS: ATTEND Obstetrics & Gynecology
DX: Z13.1 Encounter for screening for diabetes mellitus (principal)
CPT/HCPCS: 36415; 82947; 83036

== ENCOUNTER 2018-06-11 19:35 | Observation (INO) | payer OTHER, MEDICAID ==
[2018-06-11] MEDS ORDERED: LACTATED RINGERS 1,000 ML IV ONE (20:22)
[2018-06-11] MEDS ORDERED: TERBUTALINE 1 MG/ML VIAL SUBQ ONE (20:23)
[2018-06-11] MEDS ORDERED: SODIUM CHLORIDE FLUSH 0.9% 10 ML SYRINGE ONE (20:52)
[2018-06-11] MEDS ORDERED: ONDANSETRON 4 MG/2 ML VIAL IVP SCH (21:00)
[2018-06-11 21:01] LABS: BASOPHILS % (AUTO) 0.3 %; EOSINOPHILS # (AUTO) 0.1 10^3/uL (0.0-0.7); EOSINOPHILS % (AUTO) 0.7 %; HGB - HEMOGLOBIN 11.9 g/dL (12.0-16.0); LYMPHOCYTES # (AUTO) 2.6 10^3/uL (1.5-3.5); LYMPHOCYTES % (AUTO) 16.6 %; MEAN CORPUSCULAR HEMOGLOBIN 30.7 pg (27.0-31.0); MEAN CORPUSCULAR VOLUME 93.1 fL (81.0-99.0); MEAN PLATELET VOLUME 9.4 fL (7.9-10.8); MONOCYTES % (AUTO) 6.3 %; NEUTROPHILS # (AUTO) 11.7 10^3/uL (1.5-6.6); NEUTROPHILS % (AUTO) 76.1 %; PLT - PLATELET COUNT 199 10^3/uL (130-450); RED BLOOD COUNT 3.88 10^6/uL (4.20-5.40); RED CELL DISTRIBUTION WIDTH 14.3 % (12.0-15.0); WHITE BLOOD COUNT 15.4 x10^3/uL (4.8-10.8)
[2018-06-11 21:13] LABS: ALBUMIN/GLOBULIN RATIO 0.9 (1.0-2.2); BILIRUBIN,TOTAL 0.6 mg/dL (0.2-1.0); CALCIUM 8.6 mg/dL (8.5-10.3); CREATININE 0.3 mg/dL (0.4-1.0); TOTAL PROTEIN 6.3 g/dL (6.7-8.2)
[2018-06-11 21:47] LABS: BILIRUBIN,URINE NEGATIVE (NEGATIVE); GLUCOSE, URINE (UA) NEGATIVE (NEGATIVE); KETONES,URINE (UA) >=80 mg/dL (NEGATIVE); LEUKOCYTE ESTERASE, URINE NEGATIVE (NEGATIVE); NITRITE,URINE NEGATIVE (NEGATIVE); OCCULT BLOOD,URINE MODERATE (NEGATIVE); PH,URINE 6.5 PH (5.0-7.5); PROTEIN,URINE TRACE mg/dL (NEGATIVE); UROBILINOGEN,URINE 0.2 (NORMAL) E.U./dL (NORMAL)
[2018-06-11 22:00] LABS: BACTERIA,URINE Few /HPF (None Seen); CLARITY,URINE CLEAR (CLEAR); MUCUS,URINE Moderate Strands; RBC,URINE 0-5 /HPF (0-5); SQUAMOUS EPITHELIAL CELL,UR FEW Squamous (<= Few)
[2018-06-11] MEDS ORDERED: NIFEdipine 10 MG CAPSULE PO PRN (22:25)
[2018-06-11] MEDS: DEXTROSE 5%-LACTATED RINGERS 1,000 ML IV SCH (22:45)
[2018-06-11] MEDS ORDERED: ONDANSETRON 4 MG/2 ML VIAL IVP PRN (23:39)
[2018-06-12] MEDS: NIFEdipine 10 MG CAPSULE PO SCH ×2 (05:40→13:33)
[2018-06-12] MEDS ORDERED: SODIUM CHLORIDE FLUSH 0.9% 10 ML SYRINGE ONE ×4 (05:50→09:01)
[2018-06-12] MEDS ORDERED: BETAMETHASONE 30 MG/5 ML VIAL IM ONE (07:08)
[2018-06-12] MEDS ORDERED: TERBUTALINE 1 MG/ML VIAL SUBQ ONE (07:08)
[2018-06-12] MEDS: DEXTROSE 5%-LACTATED RINGERS 1,000 ML IV SCH (07:27)
[2018-06-12] MEDS ORDERED: PROMETHAZINE INJ 25 MG in SODIUM CHLORIDE 0.9% 50 ML IV PRN (07:46)
[2018-06-12] MEDS ORDERED: ACETAMINOPHEN 1,000 MG/100 ML 100 ML IV PRN (07:54)
[2018-06-12] MEDS ORDERED: DEXTROSE 5%-LACTATED RINGERS 1,000 ML IV SCH (07:57)
[2018-06-12] MEDS: TERBUTALINE 2.5 MG TABLET PO SCH ×2 (08:37→13:56)
--- NOTE | 2018-06-12 08:50 | PREOP HISTORY & PHYSICAL ---
DATE OF SERVICE: 06/12/2018 Physician: Gilberto Ortiz MD PATIENT IDENTIFICATION: Patient is a 22-year-old, G1, P0 female whose EDC is 07/24/2018; this makes her 34.1 weeks. CHIEF COMPLAINT: Nausea and vomiting for 3 days with contractions. HISTORY OF PRESENT ILLNESS: Patient states that roughly 3 days ago she developed nausea and vomiting and has been having difficulty keeping any food or fluids down. She also has been noticing some contractions, which started yesterday. Roughly at 1900 these became constant without any change. She is currently working at this time and states it is worse with lifting as well as standing. 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 She has not had any contractions so far in this ; however, her nausea and vomiting has been longstanding throughout the , and she has received Zofran for this. She also takes THC both as an eatable as well as smoked form. This seems to help her. Her weight gain during her has been only 20 pounds. She has started her weighing 102 pounds. She notes good motion. Denies any heartburn or loss of fluid. She was unable to complete her 50 gram Glucola and thus had a hemoglobin A1c which was drawn, which was 4.7. Her ultrasound during shows some mild caliectasis. She has received her flu shot as well as her Tdap. PAST MEDICAL HISTORY: Patient denies any hypertensive, diabetic, cardiac, or pulmonary disease. PAST SURGICAL HISTORY: She has had a marsupialization of a Bartholin gland duct cyst. CURRENT MEDICATIONS: Zofran. She has run out of her vitamins. ALLERGIES: NONE KNOWN. HABITS: The patient denies use of alcohol or tobacco. Does consume THC both in smoked as well as edible form; she does that roughly twice weekly. SOCIAL HISTORY: The patient is not at this time. The is partially planned. The father of the baby is involved. She is currently on WIC and obtaining food stamps. She lives in an apartment in a safe, stable environment. FAMILY HISTORY: Positive for positive breast cancer in a grandmother. REVIEW OF SYSTEMS: Positive for nausea and vomiting. She has had the minimal amount of weight gain during the . PHYSICAL EXAMINATION VITAL SIGNS: Blood pressure is 107/59, pulse is 81, respirations 18, temperature is 36.7. HEENT: Pupils equal, round. Extraocular muscles are intact. Mouth is somewhat dry. HEART: Regular rate and rhythm without murmurs. LUNGS: Lung roland are clear without rales or wheezes. BACK: No spinal CVA tenderness noted. ABDOMEN: Gravid 34 cm. It is nontender. Head is vertex. The cervix initially was 1 cm and 50% effaced. However, throughout the night she has had some contractions and was noted to be 1 cm and 60% effaced, -2 with a cervix moving from posterior to mid position. At the time of her initial examination, she had some bleeding. DTRs are 2+. Ultrasound shows no sign of previa. LABORATORY DATA: Electrolytes are all within normal limits. Potassium is 4.1, sodium is 136. CBC shows a white count of 15.4, hemoglobin 11.9, hematocrit is 36.2 with platelets of 199. She had an fFN performed on admission, which was noted to be negative. Her urine shows ketones at 4+ being 80, her WBCs are 0-5, and RBCs are 4-5. IMPRESSION 1. A 22-year-old, G1, P0, 34.1 week. 2. Contractions with labor. 3. Chronic nausea and vomiting with normal electrolytes. This has been going on throughout the entire . PLAN: Admit. Patient was admitted, initially given Zofran, which has not totally removed her nausea and vomiting. She now has an order for Phenergan 25 mg IV every 6 hours p.r.n. She also received terbutaline initially 0.25 subcutaneous, which knocked out her contractions. They returned and so she was put on Procardia 20 mg. This was repeated at 6 this morning, but she is joanna again, so we gave her another shot of terbutaline 0.25 an hour, changing her to 2.5 p.o. q.6 hours. Also giving her Tylenol 1000 mg q.6 hours p.r.n. headache. We will try and advance the patient's diet and feed her after she has her antiemetics. TD: 06/12/2018 08:37 MTDD
[2018-06-12 10:26] VITALS: BP 81/48
== END 2018-06-12 14:00 | disposition home or self-care (01) ==
LOC: WFO 19:35 → FBP 19:38 → WFO 22:28 → FBP 22:29
PROVIDERS: ADMIT Obstetrics & Gynecology; ATTEND Obstetrics & Gynecology
DX: O60.03 Preterm labor without delivery, third trimester (principal); O21.2 Late vomiting of pregnancy; Z3A.34 34 weeks gestation of pregnancy
CPT/HCPCS: 80053; 81001; 82731; 85025; 87081; 96361; 96365; 96372; 96375; 96376; 99214; A9270; G0378; J7040; J7120; 87086

== ENCOUNTER 2018-06-13 08:00 | Outpatient (CLI) | payer OTHER, MEDICAID ==
[2018-06-13] MEDS ORDERED: BETAMETHASONE 30 MG/5 ML VIAL IM ONE (08:04)
== END 2018-06-13 08:20 | disposition home or self-care (01) ==
LOC: WFO 08:00 → FBP 08:01 → WFO 08:20
PROVIDERS: ATTEND Obstetrics & Gynecology
DX: O60.03 Preterm labor without delivery, third trimester (principal); Z3A.34 34 weeks gestation of pregnancy
CPT/HCPCS: 96372

== ENCOUNTER 2018-06-24 20:57 | Outpatient (CLI) | payer OTHER, MEDICAID ==
[2018-06-24 21:34] VITALS: BP 101/48
[2018-06-24] MEDS ORDERED: LACTATED RINGERS 1,000 ML IV ONE ×2 (22:14→22:51)
[2018-06-24] MEDS ORDERED: MORPHINE 10 MG/ML VIAL IM ONE (22:16)
[2018-06-24] MEDS ORDERED: SODIUM CHLORIDE FLUSH 0.9% 10 ML SYRINGE ONE (22:53)
[2018-06-24] MEDS ORDERED: PROMETHAZINE 25 MG/1 ML VIAL IM ONE (23:00)
[2018-06-24 23:31] LABS: BILIRUBIN,URINE NEGATIVE (NEGATIVE); GLUCOSE, URINE (UA) NEGATIVE (NEGATIVE); KETONES,URINE (UA) 40 mg/dL (NEGATIVE); LEUKOCYTE ESTERASE, URINE NEGATIVE (NEGATIVE); NITRITE,URINE NEGATIVE (NEGATIVE); OCCULT BLOOD,URINE NEGATIVE (NEGATIVE); PROTEIN,URINE NEGATIVE (NEGATIVE); UROBILINOGEN,URINE 0.2 (NORMAL) E.U./dL (NORMAL)
[2018-06-24 23:34] LABS: BASOPHILS % (AUTO) 0.2 %; EOSINOPHILS % (AUTO) 0.2 %; HGB - HEMOGLOBIN 11.1 g/dL (12.0-16.0); LYMPHOCYTES # (AUTO) 2.3 10^3/uL (1.5-3.5); LYMPHOCYTES % (AUTO) 14.6 %; MEAN CORPUSCULAR HEMOGLOBIN 30.6 pg (27.0-31.0); MEAN CORPUSCULAR HGB CONC 33.6 g/dL (32.0-36.0); MEAN CORPUSCULAR VOLUME 91.1 fL (81.0-99.0); MEAN PLATELET VOLUME 9.6 fL (7.9-10.8); MONOCYTES # (AUTO) 0.9 10^3/uL (0.0-1.0); MONOCYTES % (AUTO) 5.5 %; NEUTROPHILS # (AUTO) 12.7 10^3/uL (1.5-6.6); NEUTROPHILS % (AUTO) 79.5 %; PLT - PLATELET COUNT 205 10^3/uL (130-450); RED BLOOD COUNT 3.61 10^6/uL (4.20-5.40); RED CELL DISTRIBUTION WIDTH 15.3 % (12.0-15.0)
[2018-06-24 23:35] LABS: CLARITY,URINE CLEAR (CLEAR)
[2018-06-24 23:39] LABS: BACTERIA,URINE Rare /HPF (None Seen); MUCUS,URINE Few Strands; RBC,URINE 0-5 /HPF (0-5); SQUAMOUS EPITHELIAL CELL,UR MOD Squamous (<= Few)
[2018-06-24 23:43] LABS: ALBUMIN 2.8 g/dL (3.2-5.5); ALBUMIN/GLOBULIN RATIO 0.8 (1.0-2.2); BILIRUBIN,TOTAL 0.7 mg/dL (0.2-1.0); CALCIUM 8.5 mg/dL (8.5-10.3); CREATININE 0.4 mg/dL (0.4-1.0); TOTAL PROTEIN 6.2 g/dL (6.7-8.2)
--- NOTE | 2018-06-25 03:06 | Ultrasound Report ---
Reason: maternal malnutrtion, low BMI Procedure Date: 06/25/2018 Accession Number: [id number] / [id number] Procedure: US - OB F/U or Repeat CPT Code: FULL RESULT: EXAM: FOLLOW-UP OBSTETRICAL ULTRASOUND EXAM DATE: 06/25/2018 01:55 AM. CLINICAL HISTORY: Maternal malnutrition, low BMI. Nausea and vomiting. COMPARISON: 10/24/2017 and 03/10/2018. TECHNIQUE: Real-time sonographic evaluation of the fetus performed by the counter server. Multiple statement services representative static images were saved for review. DATING: Established EGA 35 weeks 6 days with RIVERA 07/24/2018 based on stated dates. EGA 34 weeks 6 days with RIVERA 07/31/2018 based on initial ultrasound. EGA 35 weeks 4 days with RIVERA 07/26/2018 based on the current ultrasound. GENERAL EVALUATION Maya . Cardiac activity: 139 bpm. movement: Visualized. Presentation: Cephalic. Placenta: Posterior left fundal position. Amniotic fluid: Normal. TERESA 15.4 cm. MVP 5.2 cm. BIOMETRY Bi-Parietal Diameter (BPD): 9.0 cm, 36 weeks 4 days Head Circumference (HC): 32.4 cm, 36 weeks 5 days Abdominal Circumference (AC): 30.7 cm, 34 weeks 4 days Femur Length (FL): 6.7 cm, 34 weeks 3 days Estimated Weight: 2566 g, 28 percentile for 35 weeks 6 days. IMPRESSION: 1. Maya live intrauterine with gestational age 35 weeks 6 days based on stated dates. 2. Estimated weight is within expected limits for assigned dating. 3. Normal interval growth compared to 03/10/2018. YOLETTE
--- NOTE | 2018-06-25 08:17 | PROVIDER PROGRESS NOTE ---
Subjective - Prog Note Date Prog Note Date: 06/25/18 Prog Note Time: 02:25 - Subjective Subjective: Ms. Carlin is a 22-year-old primigravida at 35 weeks 6 days was cared for by the [facility] and is noted to have chronic nausea vomiting with relative malnutrition leading to a SGA fetus. She comes tonight complaining of uterine contractions and was obviously dehydrated. Fundal height is less than expected and this prompted a growth ultrasound. She reports no leakage of fluid fever chills or UTI symptoms. She has no signs or symptoms of preeclampsia. Objective - Lab Results Fish Bones: 06/24/18 23:00 06/24/18 23:00 Other Labs: Lab Results x24hrs 06/24/18 06/24/18 06/24/18 Range/Units 23:10 23:00 23:00 WBC 16.0 H (4.8-10.8) x10^3/uL RBC 3.61 L (4.20-5.40) 10^6/uL Hgb 11.1 L (12.0-16.0) g/dL Hct 32.9 L (37.0-47.0) % MCV 91.1 (81.0-99.0) fL MCH 30.6 (27.0-31.0) pg MCHC 33.6 (32.0-36.0) g/dL RDW 15.3 H (12.0-15.0) % Plt Count 205 (130-450) 10^3/uL MPV 9.6 (7.9-10.8) fL Neut # (Auto) 12.7 H (1.5-6.6) 10^3/uL Lymph # (Auto) 2.3 (1.5-3.5) 10^3/uL [place] # (Auto) 0.9 (0.0-1.0) 10^3/uL Eos # (Auto) 0.0 (0.0-0.7) 10^3/uL Baso # (Auto) 0.0 (0.0-0.1) 10^3/uL Absolute Nucleated RBC 0.00 x10^3/uL Nucleated RBC % 0.0 /100WBC Sodium 133 L (135-145) mmol/L Potassium 3.7 (3.5-5.0) mmol/L Chloride 102 (101-111) mmol/L Carbon Dioxide 21 (21-32) mmol/L Anion Gap 10.0 (6-13) BUN 8 (6-20) mg/dL Creatinine 0.4 (0.4-1.0) mg/dL Estimated GFR (MDRD) 201 (>89) Glucose 72 (70-100) mg/dL Calcium 8.5 (8.5-10.3) mg/dL Total Bilirubin 0.7 (0.2-1.0) mg/dL AST 20 (10-42) IU/L ALT 12 (10-60) IU/L Alkaline Phosphatase 196 H (42-121) IU/L Total Protein 6.2 L (6.7-8.2) g/dL Albumin 2.8 L (3.2-5.5) g/dL Globulin 3.4 (2.1-4.2) g/dL Albumin/Globulin Ratio 0.8 L (1.0-2.2) Urine Color YELLOW Urine Clarity CLEAR (CLEAR) Urine pH 6.0 (5.0-7.5) PH Ur Specific [place] >=1.030 H (1.002-1.030) Urine Protein NEGATIVE (NEGATIVE) mg/dL Urine Glucose (UA) NEGATIVE (NEGATIVE) mg/dL Urine Ketones 40 H (NEGATIVE) mg/dL Urine Occult Blood NEGATIVE (NEGATIVE) Urine Nitrite NEGATIVE (NEGATIVE) Urine Bilirubin NEGATIVE (NEGATIVE) Urine Urobilinogen 0.2 (NORMAL) (NORMAL) E.U./dL Ur Leukocyte Esterase NEGATIVE (NEGATIVE) Urine RBC 0-5 (0-5) /HPF Urine WBC 0-3 (0-5) /HPF Ur Squamous Epith Cells MOD Squamous H (<= Few) Urine Bacteria Rare (None Seen) /HPF Urine Mucus Few Strands Urine Culture Comments NOT INDICATED Assessment/Plan - Assessment/Plan Assessment: Patient is experienced poor weight gain during and fundus appears less than dates. Growth ultrasound was performed this evening that revealed the fetus was 2566 g or 28th percentile. Head circumference/abdominal circumference ratio still remains reversed. Head circumference = 32.4, abdominal circumference = 30.7. Patient's EFW was category 1. She had uterine irritability that was remedied with IV fluids. She is nutritionally at risk and should be considered for nutritional consultation and social work assessment. These items can be arranged at her next OB visit on the . Plan: Patient was discharged home to rest after therapeutic injection of morphine 10 mg/Phenergan 25 mg. Will arrange for nutritional and social work evaluation at her next OB visit.
== END 2018-06-25 02:26 | disposition home or self-care (01) ==
LOC: WFO 20:57 → FBP 21:00 → WFO 06-25 02:26
PROVIDERS: ATTEND Obstetrics & Gynecology
DX: O99.283 Endocrine, nutritional and metabolic diseases complicating pregnancy, third trimester (principal); E86.0 Dehydration; O21.2 Late vomiting of pregnancy; O26.843 Uterine size-date discrepancy, third trimester; Z3A.35 35 weeks gestation of pregnancy
CPT/HCPCS: 76816; 80053; 81001; 85025; 96372; 99213; J7120; 87086

== ENCOUNTER 2018-06-28 08:00 | Outpatient (CLI) | payer OTHER, MEDICAID | END 2018-06-28 23:59 | disposition home or self-care (01) | LOC: LAB.R 08:00 | PROVIDERS: ATTEND Obstetrics & Gynecology | DX: Z34.90 Encounter for supervision of normal pregnancy, unspecified, unspecified trimester (principal) | CPT/HCPCS: 87081 ==

== ENCOUNTER 2018-07-02 06:48 | Outpatient (CLI) | payer OTHER, MEDICAID ==
--- NOTE | 2018-07-02 11:26 | Ultrasound Report ---
Reason: INTRAUTERINE GROWTH RESTRICTION, 3RD TRIMESTER Procedure Date: 07/02/2018 Accession Number: [id number] / [id number] Procedure: US - OB F/U or Repeat CPT Code: FULL RESULT: EXAM: COMPLETE OBSTETRICAL ULTRASOUND EXAM DATE: 07/02/2018 07:29 AM. CLINICAL HISTORY: Maternal malnutrition. IUGR third trimester. COMPARISON: OB F/U OR REPEAT 06/25/2018 12:56 AM. TECHNIQUE: Real-time sonographic evaluation of the fetus performed by the pump technician. Multiple hospital insurance representative static images were saved for review. Additional transvaginal imaging to more accurately evaluate cervical length/placental position/etc. DATING: Established EGA 36 weeks 6 days with RIVERA 07/24/2018 based on physician stated. EGA 35 weeks 6 days with RIVERA 07/31/2018 based on last menstrual period; EGA 36 weeks 4 days with RIVERA of 07/26/2018 based on most recent ultrasound of 06/25/2018. EGA 36 weeks 4 days with RIVERA 07/26/2018 based on the current ultrasound. GENERAL EVALUATION Maya . Cardiac activity: 132 bpm. movement: Visualized. Presentation: Cephalic. Placenta: Posterior fundal position. No evidence for previa. Amniotic fluid: Subjectively normal with TERESA of 10.2 cm. MVP 5.5 cm. BIOMETRY Bi-Parietal Diameter (BPD): 9.1 cm, 36 weeks 6 days Head Circumference (HC): 33.1 cm, 37 weeks 5 days Abdominal Circumference (AC): 32.2 cm, 36 weeks 1 day Femur Length (FL): 6.9 cm, 35 weeks 4 days Estimated Weight: 2889 g, 39th percentile for 36 weeks 6 days. IMPRESSION: 1. Maya live intrauterine with gestational age 36 weeks 6 days based on physician stated. 2. Estimated weight is within expected limits for assigned dating at the 39th percentile. YOLETTE
== END 2018-07-02 06:49 | disposition home or self-care (01) ==
LOC: DI 06:48
PROVIDERS: ATTEND Obstetrics & Gynecology
DX: O36.5930 Maternal care for other known or suspected poor fetal growth, third trimester, not applicable or unspecified (principal); Z3A.36 36 weeks gestation of pregnancy
CPT/HCPCS: 76816

== ENCOUNTER 2018-07-12 14:51 | Outpatient (CLI) | payer OTHER, MEDICAID ==
[2018-07-12 15:31] LABS: MUDS CUTOFF CONCENTRATIONS CUTOFF CONC BELOW:
[2018-07-12 17:11] LABS: AMPHETAMINE SCREEN,URINE NEGATIVE (NEGATIVE); BENZODIAZEPINES SCREEN, URINE NEGATIVE (NEGATIVE); COCAINE SCREEN URINE NEGATIVE (NEGATIVE); METHADONE SCREEN, URINE NEGATIVE (NEGATIVE); METHAMPHETAMINES SCREEN, URINE NEGATIVE (NEGATIVE); OPIATE SCREEN, URINE NEGATIVE (NEGATIVE); OXYCODONE SCREEN, URINE NEGATIVE (NEGATIVE); PROPOXYPHENE SCREEN, URINE NEGATIVE (NEGATIVE); TRICYCLIC ANTIDEPRESSANT,URINE NEGATIVE (NEGATIVE)
== END 2018-07-12 14:52 | disposition home or self-care (01) ==
LOC: LAB.R 14:51
PROVIDERS: ATTEND Obstetrics & Gynecology
DX: Z34.80 Encounter for supervision of other normal pregnancy, unspecified trimester (principal)
CPT/HCPCS: 80306

== ENCOUNTER 2018-07-12 22:57 | Outpatient (CLI) | payer OTHER, MEDICAID ==
[2018-07-12 23:15] VITALS: BP 107/62
== END 2018-07-13 00:06 | disposition home or self-care (01) ==
LOC: WFO 22:57 → FBP 22:59 → WFO 07-13 00:06
PROVIDERS: ATTEND Obstetrics & Gynecology
DX: O99.89 Other specified diseases and conditions complicating pregnancy, childbirth and the puerperium (principal); R10.31 Right lower quadrant pain; Z3A.38 38 weeks gestation of pregnancy
CPT/HCPCS: 99213

== ENCOUNTER 2018-07-30 14:21 | Outpatient (CLI) | payer OTHER, MEDICAID ==
[2018-07-30 17:51] VITALS: BP 99/62
== END 2018-07-30 17:05 | disposition home or self-care (01) ==
LOC: WFO 14:21 → FBP 14:23 → WFO 17:05
PROVIDERS: ATTEND Obstetrics & Gynecology
DX: O47.1 False labor at or after 37 completed weeks of gestation (principal); Z3A.41 41 weeks gestation of pregnancy
CPT/HCPCS: 99214

== ENCOUNTER 2018-07-31 07:57 | Inpatient (IN) | payer OTHER, MEDICAID ==
[2018-07-31] MEDS ORDERED: SODIUM CHLORIDE FLUSH 0.9% 10 ML SYRINGE IVP PRN (08:09)
[2018-07-31] MEDS ORDERED: OXYTOCIN/SODIUM CHLORIDE 500 ML IV ONE (08:19)
[2018-07-31] MEDS: LACTATED RINGERS 1,000 ML IV SCH ×3 (08:30→18:11)
[2018-07-31 08:32] LABS: BASOPHILS # (AUTO) 0.1 10^3/uL (0.0-0.1); BASOPHILS % (AUTO) 0.5 %; EOSINOPHILS # (AUTO) 0.2 10^3/uL (0.0-0.7); EOSINOPHILS % (AUTO) 1.2 %; HGB - HEMOGLOBIN 11.4 g/dL (12.0-16.0); LYMPHOCYTES # (AUTO) 3.3 10^3/uL (1.5-3.5); LYMPHOCYTES % (AUTO) 23.3 %; MEAN CORPUSCULAR HEMOGLOBIN 29.4 pg (27.0-31.0); MEAN CORPUSCULAR VOLUME 89.2 fL (81.0-99.0); MEAN PLATELET VOLUME 9.7 fL (7.9-10.8); MONOCYTES # (AUTO) 1.1 10^3/uL (0.0-1.0); MONOCYTES % (AUTO) 7.9 %; NEUTROPHILS # (AUTO) 9.5 10^3/uL (1.5-6.6); NEUTROPHILS % (AUTO) 67.1 %; PLT - PLATELET COUNT 194 10^3/uL (130-450); RED BLOOD COUNT 3.88 10^6/uL (4.20-5.40); RED CELL DISTRIBUTION WIDTH 17.5 % (12.0-15.0); WHITE BLOOD COUNT 14.2 x10^3/uL (4.8-10.8)
[2018-07-31] MEDS: ONDANSETRON 4 MG/2 ML VIAL IVP PRN ×2 (10:00→15:24)
[2018-07-31] MEDS: OXYTOCIN/SODIUM CHLORIDE 500 ML IV SCH (10:10)
--- NOTE | 2018-07-31 10:25 | HISTORY & PHYSICAL EXAMINATION ---
Admit History - Visit Reason Visit Reason: Other (23 YO EDC 07/24/18. Started Care early. Pt is 41 weeks today. pregnecy has been complicated with nausia and vomiting) - : 1 Parity: 0 Care: positive: [facility] Risk/History: positive: None Complications This : positive: Other (hyperemmisis) Smoking Status: Former smoker - Mother's Labs Mother's Blood Type: positive: B Mother's RH: positive: Positive GBS: positive: Group B Step Negative Rubella Status: positive: Immune Meds/Allgy - Home Medications Home Medications: Ambulatory Orders Medication Instructions Recorded Confirmed Ondansetron Odt [Zofran] 4 mg TL Q6H PRN #10 tablet 01/13/18 HYDROcod/ACETAM 5/325 [[place] 5/325] 1 - 2 ea PO Q6H PRN #10 tablet 01/21/18 Pnv No.122/Iron/Folic Acid 01/21/18 [ Multi Tablet] - Allergies Allergies/Adverse Reactions: Allergies Allergy/AdvReac Type Severity Reaction Status Date / Time No Known Drug Allergies Allergy Verified 01/21/18 17:17 Physical - Abdominal Exam Contraction Frequency (min/apart): not in labor Uterine Resting Tone: positive: Soft (125) - Monitoring Heart Rate Baseline: 125 Strip Review: positive: Category I - Presentation Presentation: positive: Vertex - Vaginal Exam Membranes: positive: Membranes intact Dilation (in cm): 4 Effacement (%): 80 Station: positive: -1 Cervical Position: positive: Posterior Plan for Labor - Plan For Labor I expect patient to be DC'd or transferred within 96 hours.: Yes Plan for Labor: Pt is a 23 YO EDC 07/24/18, 41.0 weeks. complicated with Nausea and vomiting. Last night the head was 0 station and cx was mid. baby has the head up but not out of the pelvis. Start Eh. R&B, KERRI.
[2018-07-31] MEDS ORDERED: fentaNYL 100 MCG/2 ML VIAL IVP PRN (15:20)
[2018-07-31] MEDS ORDERED: fentaNYL 100 MCG/2 ML VIAL ONE (15:21)
--- NOTE | 2018-07-31 15:23 | PROVIDER PROGRESS NOTE ---
Labor Progress Note - Uterine Monitoring Contraction Frequency (min/apart): 3 Contraction Intensity: positive: Moderate to strong Uterine Resting Tone: positive: Soft - Monitoring Monitor Mode: positive: External ultrasound Heart Rate Baseline: 135 Heart Rate Variability: positive: Moderate (6-25 bmp) Accelerations: positive: Present, 15x15 Decelerations: positive: None Strip Review: positive: Category I - Vaginal Exam Dilation (in cm): 5 Effacement (%): 90 Station: -1 Cervical Position: Midposition - Labor Progress Note Labor Progress Note/Additional Text: Labor slowly progressing. AROM Clear.
[2018-07-31] MEDS ORDERED: fent/BUPIV 2 MCG/0.125% 250 ML EP ONE (15:55)
[2018-07-31] MEDS ORDERED: ROPIVACAINE 0.2% PF 20 ML AMPULE ONE (15:57)
--- NOTE | 2018-07-31 16:29 | PROVIDER PROGRESS NOTE ---
Labor Progress Note - Uterine Monitoring Contraction Frequency (min/apart): 3 Contraction Intensity: positive: Moderate to strong Uterine Resting Tone: positive: Soft - Monitoring Monitor Mode: positive: External ultrasound Heart Rate Baseline: 120 Heart Rate Variability: positive: Moderate (6-25 bmp) Accelerations: positive: Present, 15x15 Decelerations: positive: Variable Strip Review: positive: Category II - Vaginal Exam Dilation (in cm): 7 Effacement (%): 100 Station: 0 - Labor Progress Note Labor Progress Note/Additional Text: Pt is having varrible decelerations following Epidural. Cx check progressing Position change, O2 consider pit off
[2018-07-31] MEDS ORDERED: ONDANSETRON 4 MG/2 ML VIAL IVP PRN (16:38)
[2018-07-31] MEDS ORDERED: fent/BUPIV 2 MCG/0.125% 250 ML EP PRN (16:38)
[2018-07-31] MEDS ORDERED: diphenhydrAMINE INJ 50 MG/ML VIAL IVP PRN (16:38)
[2018-07-31] MEDS ORDERED: LACTATED RINGERS 500 ML IV ONE (16:38)
[2018-07-31] MEDS ORDERED: ePHEDrine 50 MG/ML VIAL IVP PRN (16:38)
[2018-07-31] MEDS ORDERED: NALBUPHINE 10 MG/ML AMP IVP PRN (16:38)
[2018-07-31] MEDS ORDERED: NALOXONE 0.4 MG/ML VIAL IVP PRN (16:38)
[2018-07-31] MEDS ORDERED: METOCLOPRAMIDE 10 MG/2 ML VIAL IVP PRN (16:38)
--- NOTE | 2018-07-31 16:42 | ANESTHESIA ---
Pre-Anesthesia VS, & Labs - Diagnosis term , labor - Procedure labor epidural Height 5 ft 7.5 in Weight (kg) 58.06 kg Body Mass Index 15.0 - NPO Other (clear liquids from now until delivery) - Is Patient ?: Yes - Lab Results Current Lab Results: Laboratory Tests 07/31/18 08:24: WBC 14.2 H, RBC 3.88 L, Hgb 11.4 L, Hct 34.6 L, MCV 89.2, MCH 29.4, MCHC 33.0, RDW 17.5 H, Plt Count 194, MPV 9.7, Neut # (Auto) 9.5 H, Lymph # (Auto) 3.3, [place] # (Auto) 1.1 H, Eos # (Auto) 0.2, Baso # (Auto) 0.1, Absolute Nucleated RBC 0.01, Nucleated RBC % 0.0 Fish Bones: 07/31/18 08:24 Home Medications and Allergies Active Medications Fentanyl (Fentanyl) 50 mcg IVP Q2HR PRN PRN Reason: PAIN Last Admin: 07/31/18 15:24 Dose: 50 mcg Lactated Ringer's (Lr) 1,000 mls @ 100 mls/hr IV .Q10H ANURAG Last Admin: 07/31/18 15:28 Dose: 100 mls/hr Oxytocin/Sodium Chloride (Pitocin/Sodium Chloride) 500 mls @ 1 mls/hr IV TITR ANURAG; Protocol Last Admin: 07/31/18 10:10 Dose: 1 milliunit/min, 1 mls/hr Ondansetron HCl (Zofran Inj) 4 mg IVP Q4HR PRN PRN Reason: Nausea / Vomiting Last Admin: 07/31/18 15:24 Dose: 4 mg Sodium Chloride (Normal Saline Flush 0.9%) 10 ml IVP 0100,0900,1700 ANURAG Sodium Chloride (Normal Saline Flush 0.9%) 10 ml IVP PRN PRN PRN Reason: NEEDED PER PROVIDER ORDERS Pnv No.122/Iron/Folic Acid [ Multi Tablet] 01/21/18 Allergies/Adverse Reactions: Allergies Allergy/AdvReac Type Severity Reaction Status Date / Time No Known Drug Allergies Allergy Verified 01/21/18 17:17 Anes History & Medical History - Anesthetic History Anesthesia Complications: reports: No previous complications - Medical History Cardiovascular: reports: None Pulmonary: reports: None Gastrointestinal: reports: None Urinary: reports: None Musculoskeletal: reports: None Endocrine/Autoimmune: reports: None Skin: reports: None Smoking Status: Never smoker - Surgical History Gynecologic: Other - Obstetrical History : 1 Parity: 0 Events: positive: None Complications: positive: Other (hyperemisis) Plan for Delivery: vaginal with epidural Exam General: Alert Dental: WNL Mouth Opening: Greater than 4 Fingerbreadths Neck Mobility: Normal Mallampati classification: II Plan Anesthesia Type: Epidural Consent for Procedure(s) Verified and Reviewed: Yes Code Status: Attempt Resuscitation ASA classification: 2-Mild systemic disease Is this case an emergency?: No
[2018-07-31] MEDS ORDERED: LACTATED RINGERS 1,000 ML IV ONE ×2 (16:45→19:24)
[2018-07-31] MEDS ORDERED: LIDOCAINE 1% 50 ML MDV ONE (17:15)
[2018-07-31] MEDS ORDERED: miSOPROStol 200 MCG TABLET ONE (17:15)
[2018-07-31] MEDS ORDERED: MINERAL OIL LIGHT 10 ML MC ONE (17:16)
--- NOTE | 2018-07-31 18:24 | PROVIDER PROGRESS NOTE ---
Labor Progress Note - Uterine Monitoring Uterine Monitoring Mode: positive: External toco Contraction Frequency (min/apart): 3 Contraction Intensity: positive: Moderate to strong Uterine Resting Tone: positive: Soft - Monitoring Monitor Mode: positive: External ultrasound Heart Rate Baseline: 120 Heart Rate Variability: positive: Moderate (6-25 bmp) Accelerations: positive: Present, 15x15 Decelerations: positive: None Strip Review: positive: Category I - Vaginal Exam Dilation (in cm): 7 Effacement (%): 100 Station: 0 Cervical Position: Midposition - Labor Progress Note Labor Progress Note/Additional Text: Labor slowing heart strip reactive place cohen catheter.
[2018-07-31] MEDS: SODIUM CHLORIDE FLUSH 0.9% 10 ML SYRINGE IVP SCH (18:55)
[2018-07-31] MEDS ORDERED: METHYLERGONOVINE 0.2 MG/ML AMP IM ONE (20:00)
[2018-07-31] MEDS ORDERED: LIDOCAINE 1% 2 ML VIAL SUBQ ONE (20:00)
[2018-07-31] MEDS ORDERED: METHYLERGONOVINE 0.2 MG/ML AMP ONE (20:27)
--- NOTE | 2018-07-31 21:05 | DELIVERY NOTE ---
Delivery Note - Labor Labor: positive: Induced by oxytocin - Infant Delivery Method Delivery Method: positive: Spontaneous vaginal delivery (Failed Vacuum) - Presentation Presentation: positive: Vertex, NATALY - right occiput anterior - Nuchal Cord Nuchal Cord: positive: Present (Nucle cord times 2 with body cord) - Anesthetic Anesthetic Type: Anesthetic: positive: Lidocaine - 1% plain Volume: positive: Other (25) - Amniotic Fluid Description Amniotic Fluid Description: positive: Clear - Vacuum Use Indication for Vacuum Use: positive: Suspicion of immediate or potential compromise (Baby had decelerations down to the 90's for 8 min. intrauterine resusitation.) Type of Vacuum Cup: positive: Cup: Mushroom Type Vacuum Extraction: positive: Unsuccessful (Pulled wiht 3 contractions. heart jus was arassuring so alowed the pt to continue pushing) - Episiotomy Type Episiotomy Type: positive: Midline - Laceration Laceration: positive: 2nd degree - Suture Suture Type: positive: Vicryl Suture Size: positive: 3-0 - Delivery Outcome Delivery Outcome: positive: Livebirth (male Apgars 4/8 peds was in attendence to resussitate) - : positive: Bulb syringe, Stimulated sex: positive: Male - Cord Cord: positive: 3 vessels - Placenta Placenta: positive: Intact, Spontaneous - Estimated Blood Loss Estimated Blood Loss (in cc): 450 - Delivery Comments (Free Text/Narrative) Delivery Comments (Free Text/Narrative): Pt had a prolonged deceleration Han of 60 for 8 min. checked and was complete at 1920. heart rate rebounded with IV fluids and Ephedrin. Push comenced at 192 Vacuume was applied at +2-3 and pulled with 3 contraction with progress to +3. heart rate was acceptable. for safety the OR and peds was summoned. Delivery was accomplished at 2021 NATALY over a second degree episiotomy. At delivery a double nucal cord with body cord was encountered. these were reduced prior to delivery of the . Nose and mouth bulb suctioned and baby was handed to the professor of theater who was standing by. Apgars were 4/8 Placenta followed at 2024 and was inspected adn noted to be intact. CX was checked for lacerations. Attony encountered and treated wit pitocin and methergin. episiotomy repaired with 3-0 vicril. EBL 450
[2018-07-31] MEDS ORDERED: HYDROCORTISONE 1% CREAM 28 GM TUBE PR PRN (21:34)
[2018-07-31] MEDS ORDERED: WITCH HAZEL/GLYCERIN 1 EACH MED..PAD TOP PRN (21:34)
[2018-07-31] MEDS ORDERED: HYDROCORTISONE/PRAMOXINE 10 GM PR PRN (21:34)
[2018-07-31] MEDS ORDERED: oxyCODONE 5 MG TABLET PO PRN (21:34)
[2018-07-31] MEDS ORDERED: LACTATED RINGERS 1,000 ML IV SCH (22:00)
[2018-07-31] MEDS: IBUPROFEN 600 MG TABLET PO SCH (23:32)
[2018-07-31] MEDS: ACETAMINOPHEN 500 MG TABLET PO SCH (23:33)
[2018-08-01] MEDS: OXYTOCIN/SODIUM CHLORIDE 500 ML IV SCH (00:52)
[2018-08-01] MEDS: IBUPROFEN 600 MG TABLET PO SCH ×3 (05:15→17:47)
[2018-08-01] MEDS ORDERED: LIDOCAINE 1% 50 ML MDV ONE (05:49)
[2018-08-01 06:00] LABS: BASOPHILS # (AUTO) 0.1 10^3/uL (0.0-0.1); BASOPHILS % (AUTO) 0.4 %; EOSINOPHILS # (AUTO) 0.1 10^3/uL (0.0-0.7); EOSINOPHILS % (AUTO) 0.4 %; HGB - HEMOGLOBIN 9.4 g/dL (12.0-16.0); LYMPHOCYTES # (AUTO) 2.7 10^3/uL (1.5-3.5); LYMPHOCYTES % (AUTO) 14.3 %; MEAN CORPUSCULAR HEMOGLOBIN 29.1 pg (27.0-31.0); MEAN CORPUSCULAR HGB CONC 32.1 g/dL (32.0-36.0); MEAN CORPUSCULAR VOLUME 90.6 fL (81.0-99.0); MEAN PLATELET VOLUME 9.2 fL (7.9-10.8); MONOCYTES # (AUTO) 1.3 10^3/uL (0.0-1.0); MONOCYTES % (AUTO) 7.2 %; NEUTROPHILS # (AUTO) 14.4 10^3/uL (1.5-6.6); NEUTROPHILS % (AUTO) 77.7 %; PLT - PLATELET COUNT 155 10^3/uL (130-450); RED BLOOD COUNT 3.24 10^6/uL (4.20-5.40); RED CELL DISTRIBUTION WIDTH 17.3 % (12.0-15.0); WHITE BLOOD COUNT 18.6 x10^3/uL (4.8-10.8)
[2018-08-01] MEDS: ACETAMINOPHEN 500 MG TABLET PO SCH ×2 (09:28→17:47)
[2018-08-01] MEDS: SODIUM CHLORIDE FLUSH 0.9% 10 ML SYRINGE IVP SCH (10:35)
[2018-08-01] MEDS: SIMETHICONE CHEW 80 MG TABLET PO SCH ×3 (11:14→21:13)
--- NOTE | 2018-08-01 13:48 | PROVIDER PROGRESS NOTE ---
Subjective - Prog Note Date Prog Note Date: 08/01/18 Prog Note Time: 13:46 - Subjective Pt reports feeling: Improved (Pain 2/10. baby doing well) Objective - Vital Signs/Intake & Output Reviewed Vital Signs: Yes Vital Signs: Vital Signs x48h Temp Pulse Resp BP Pulse Ox 08/01/18 11:38 35.8 C L 75 18 96/53 L 100 08/01/18 09:00 36.8 C 70 14 96/52 L 100 Intake & Output: Intake & Output 07/29/18 07/30/18 07/31/18 08/01/18 23:59 23:59 23:59 23:59 Intake Total 1318.334 14.7 Output Total 875 1000 Balance 443.334 -985.3 - Objective General Appearance: positive: No acute distress, Alert Respiratory: positive: Chest non-tender, No respiratory distress, Breath sounds nml. negative: Wheezes (listened carfuly to the left apex) Cardiovascular: positive: Regular rate & rhythm, No murmur, No gallop Abdomen: positive: Non-tender, Nml bowel sounds, Mass (u-2) Extremities: negative: Calf tenderness, Dane's sign/cords - Lab Results Fish Bones: 08/01/18 05:53 Other Labs: Lab Results x24hrs 08/01/18 Range/Units 05:53 WBC 18.6 H (4.8-10.8) x10^3/uL RBC 3.24 L (4.20-5.40) 10^6/uL Hgb 9.4 L (12.0-16.0) g/dL Hct 29.4 L (37.0-47.0) % MCV 90.6 (81.0-99.0) fL MCH 29.1 (27.0-31.0) pg MCHC 32.1 (32.0-36.0) g/dL RDW 17.3 H (12.0-15.0) % Plt Count 155 (130-450) 10^3/uL MPV 9.2 (7.9-10.8) fL Neut # (Auto) 14.4 H (1.5-6.6) 10^3/uL Lymph # (Auto) 2.7 (1.5-3.5) 10^3/uL [place] # (Auto) 1.3 H (0.0-1.0) 10^3/uL Eos # (Auto) 0.1 (0.0-0.7) 10^3/uL Baso # (Auto) 0.1 (0.0-0.1) 10^3/uL Absolute Nucleated RBC 0.00 x10^3/uL Nucleated RBC % 0.0 /100WBC Assessment/Plan - Problem List (1) (spontaneous vaginal delivery) Impression: Anemia following delivery. CBC in the AM
[2018-08-01] MEDS: DOCUSATE SODIUM 100 MG CAPSULE PO SCH ×2 (14:57→21:13)
[2018-08-01] MEDS ORDERED: METHYLERGONOVINE 0.2 MG/ML AMP IM SCH (20:00)
[2018-08-01] MEDS ORDERED: LIDOCAINE 1% 2 ML VIAL SUBQ SCH (20:00)
[2018-08-02] MEDS: IBUPROFEN 600 MG TABLET PO SCH ×3 (01:17→19:08)
[2018-08-02] MEDS: ACETAMINOPHEN 500 MG TABLET PO SCH ×3 (02:32→20:08)
[2018-08-02 06:05] LABS: BASOPHILS # (AUTO) 0.1 10^3/uL (0.0-0.1); BASOPHILS % (AUTO) 0.4 %; EOSINOPHILS # (AUTO) 0.3 10^3/uL (0.0-0.7); EOSINOPHILS % (AUTO) 2.2 %; LYMPHOCYTES # (AUTO) 4.6 10^3/uL (1.5-3.5); LYMPHOCYTES % (AUTO) 29.4 %; MEAN CORPUSCULAR HEMOGLOBIN 29.4 pg (27.0-31.0); MEAN CORPUSCULAR HGB CONC 31.9 g/dL (32.0-36.0); MEAN CORPUSCULAR VOLUME 92.1 fL (81.0-99.0); MONOCYTES # (AUTO) 0.9 10^3/uL (0.0-1.0); MONOCYTES % (AUTO) 5.6 %; NEUTROPHILS # (AUTO) 9.8 10^3/uL (1.5-6.6); NEUTROPHILS % (AUTO) 62.4 %; PLT - PLATELET COUNT 184 10^3/uL (130-450); RED BLOOD COUNT 3.05 10^6/uL (4.20-5.40); RED CELL DISTRIBUTION WIDTH 17.5 % (12.0-15.0); WHITE BLOOD COUNT 15.7 x10^3/uL (4.8-10.8)
--- NOTE | 2018-08-02 08:34 | PROVIDER PROGRESS NOTE ---
Subjective - Prog Note Date Prog Note Date: 08/02/18 Prog Note Time: 08:33 - Subjective Pt reports feeling: Improved (Pain 2/10 breast feeding.) Objective - Vital Signs/Intake & Output Reviewed Vital Signs: Yes Vital Signs: Vital Signs x48h Temp Pulse Resp BP BP Pulse Ox 08/02/18 05:20 91/45 L 08/02/18 04:40 36.6 C 65 14 86/49 L 100 Intake & Output: Intake & Output 07/30/18 07/31/18 08/01/18 08/02/18 23:59 23:59 23:59 23:59 Intake Total 1318.334 14.7 Output Total 875 1000 Balance 443.334 -985.3 - Objective General Appearance: positive: No acute distress, Alert Abdomen: positive: Non-tender, No organomegaly, Nml bowel sounds, No distention, Mass (U-2) Rectal: positive: Other (perineum moderate swelling. brusing) Extremities: negative: Calf tenderness, Dane's sign/cords Neurologic/Psychiatric: positive: Oriented x3 - Lab Results Fish Bones: 08/02/18 05:54 Other Labs: Lab Results x24hrs 08/02/18 Range/Units 05:54 WBC 15.7 H (4.8-10.8) x10^3/uL RBC 3.05 L (4.20-5.40) 10^6/uL Hgb 9.0 L (12.0-16.0) g/dL Hct 28.1 L (37.0-47.0) % MCV 92.1 (81.0-99.0) fL MCH 29.4 (27.0-31.0) pg MCHC 31.9 L (32.0-36.0) g/dL RDW 17.5 H (12.0-15.0) % Plt Count 184 (130-450) 10^3/uL MPV 9.0 (7.9-10.8) fL Neut # (Auto) 9.8 H (1.5-6.6) 10^3/uL Lymph # (Auto) 4.6 H (1.5-3.5) 10^3/uL [place] # (Auto) 0.9 (0.0-1.0) 10^3/uL Eos # (Auto) 0.3 (0.0-0.7) 10^3/uL Baso # (Auto) 0.1 (0.0-0.1) 10^3/uL Absolute Nucleated RBC 0.01 x10^3/uL Nucleated RBC % 0.0 /100WBC Assessment/Plan - Problem List (1) (spontaneous vaginal delivery) Impression: mother and baby doing well. baby staying for bili concerns.
[2018-08-02] MEDS: DOCUSATE SODIUM 100 MG CAPSULE PO SCH ×2 (08:55→21:07)
[2018-08-02] MEDS: SIMETHICONE CHEW 80 MG TABLET PO SCH (22:06)
[2018-08-03] MEDS: IBUPROFEN 600 MG TABLET PO SCH ×2 (00:46→06:39)
[2018-08-03] MEDS: ACETAMINOPHEN 500 MG TABLET PO SCH ×2 (04:04→05:10)
--- NOTE | 2018-08-03 08:51 | PROVIDER PROGRESS NOTE ---
Subjective - Prog Note Date Prog Note Date: 08/03/18 Prog Note Time: 08:48 - Subjective Pt reports feeling: Improved (0/10, breast feeding, milk not in yet.) Objective - Vital Signs/Intake & Output Reviewed Vital Signs: Yes Vital Signs: Vital Signs x48h Temp Pulse Resp BP Pulse Ox 08/03/18 04:30 36.6 C 68 14 105/59 L 100 Intake & Output: Intake & Output 07/31/18 08/01/18 08/02/18 08/03/18 23:59 23:59 23:59 23:59 Intake Total 1318.334 14.7 Output Total 875 1000 Balance 443.334 -985.3 - Objective General Appearance: positive: No acute distress, Alert Abdomen: positive: Non-tender, No organomegaly, Nml bowel sounds, Mass (U-2) Extremities: negative: Calf tenderness, Dane's sign/cords - Lab Results Fish Bones: 08/02/18 05:54 Other Labs: Lab Results x24hrs 08/02/18 Range/Units 05:54 WBC 15.7 H (4.8-10.8) x10^3/uL RBC 3.05 L (4.20-5.40) 10^6/uL Hgb 9.0 L (12.0-16.0) g/dL Hct 28.1 L (37.0-47.0) % MCV 92.1 (81.0-99.0) fL MCH 29.4 (27.0-31.0) pg MCHC 31.9 L (32.0-36.0) g/dL RDW 17.5 H (12.0-15.0) % Plt Count 184 (130-450) 10^3/uL MPV 9.0 (7.9-10.8) fL Neut # (Auto) 9.8 H (1.5-6.6) 10^3/uL Lymph # (Auto) 4.6 H (1.5-3.5) 10^3/uL [place] # (Auto) 0.9 (0.0-1.0) 10^3/uL Eos # (Auto) 0.3 (0.0-0.7) 10^3/uL Baso # (Auto) 0.1 (0.0-0.1) 10^3/uL Absolute Nucleated RBC 0.01 x10^3/uL Nucleated RBC % 0.0 /100WBC Assessment/Plan - Problem List (1) (spontaneous vaginal delivery) Impression: mother and baby doing well Discharge medications Colace 100 mg reviewed infection and contraception. RTC 2,4 weeks
--- NOTE | 2018-08-03 08:52 | Discharge Plan ---
Discharge Plan Disposition: 01 Home, Self Care Condition: Good Diet: Regular Shower Restrictions: No Driving Restrictions: No No Smoking: If you smoke, Please STOP! Call for help.
[2018-08-03 12:09] VITALS: BP 107/57
--- NOTE | 2018-08-03 13:45 | Labor Flowsheet ---
Labor Flowsheet Datetime Report Generated by CPN: 08/03/2018 13:45 Datetime: 08/03/2018 12:06 VITAL SIGNS NBP Sys/Jessica/Mean (mmHg): 107 : 57 : 68 Pulse: 85 LaborFlag: Labor Datetime: 08/03/2018 04:29 SpO2 (%): 100 Datetime: 07/31/2018 20:25 Stage 2 Comments: Placenta delivered spontaneously. Intact. Sent to path Datetime: 07/31/2018 20:22 UTERINE ACTIVITY Monitor Mode: External Frequency (min): 2-2.5 Quality: Strong Duration (sec): 50-70 Pattern: Normal: <= 5 Contractions in 10 Minutes Resting Tone (Palpate): Relaxed Pitocin Checklist: At Least 1 Acceleration of 15 bpm x 15 Seconds in 30 Minutes or Adequate Variabi lity; No More than 5 Uterine Contractions in 10 Minutes for any 20 Minute Interval; Uterus Palpates S oft between Contractions ASSESSMENT A Monitor Mode: External US FHR Baseline Rate : 135 Variability: Moderate 6-25 bpm Accelerations: 15X15 Decelerations: Variable Category: Category II Datetime: 07/31/2018 20:16 STAGE 2 Pushing: Coached on Pushing Pushing Position: Pushing with Contractions Pushing Progress: Pushing Effectively with Contractions Datetime: 07/31/2018 20:12 I/O Interventions: [place] Discontinued Datetime: 07/31/2018 20:02 MEDICATIONS Pitocin (milliunits): Started @ 2 Medication Comments: verbal order per Dr. Giem Datetime: 07/31/2018 20:00 Comments: Confirmed FHR with M. Hemal-Rotundo RN. Datetime: 07/31/2018 19:49 PATIENT CARE IV/Blood Work: IV Bolus Given ml @ 950 Datetime: 07/31/2018 19:42 Vacuum: Off Datetime: 07/31/2018 19:39 Station Vacuum/Forceps Applied: +2 Datetime: 07/31/2018 19:37 Vaginal Exam Comments: Dr. Ortiz - ROP Datetime: 07/31/2018 19:20 VAGINAL EXAM Dilatation (cm): 10.0 Effacement (%): 100 Station: 2 Exam by: Dr. Ortiz Patient Position/Activity: Hands-Knees Patient Care Comments: This RN assummed care of patient at this time. Communication Comments: House Sup notified - OR team called, Dr. Emery called and requested to com e in. Datetime: 07/31/2018 19:17 COMMUNICATION Communication: Call/Page Placed to Provider Datetime: 07/31/2018 19:16 Monitor Interventions for FHR: FSE Applied Datetime: 07/31/2018 19:15 Actions for Decelerations: IV Bolus Datetime: 07/31/2018 19:13 Oxygen Method: Non-Rebreather Datetime: 07/31/2018:01 Oxygen Amount (LPM): 15 Datetime: 07/31/2018 18:43 Anesthesia Interventions Other: Ephedrine Anesthesia Comments: 10mg ephendrine given per anesthesia provider. Anesthesia provider given contr ol of epidural gonzalez set. Datetime: 07/31/2018 18:37 Respirations: 16 PAIN Pain Scale: 0 Datetime: 07/31/2018 18:16 Temperature (C): 36.6 Temperature Route: Oral Datetime: 07/31/2018 18:13 Hygiene: Celia Care; Underpad Changed Datetime: 07/31/2018 17:45 FHR Baseline Changes: Return to Previous Baseline Datetime: 07/31/2018 17:20 Monitor Interventions for UA: [place] Adjusted Datetime: 07/31/2018 17:00 ANESTHESIA Anesthesia Plans: Epidural Anesthesia Level Check: T9 Datetime: 07/31/2018 16:21 Membrane Status: Ruptured Amniotic Fluid Color: Clear Amniotic Fluid Amount: Scant Amniotic Fluid Odor: Normal Datetime: 07/31/2018 16:12 Epidural Positioning: patient assisted to low fowlers right tilt Datetime: 07/31/2018 16:09 Epidural Procedure: Test Dose Datetime: 07/31/2018 16:01 Anesthesia Interview: E (Annotations: consented for epidural) Datetime: 07/31/2018 15:26 Analgesics/Sedatives: Fentanyl (mcg) @ (Annotations: 50) Antiemetics/Antacids: Zofran (mg) @ (Annotations: 4) Datetime: 07/31/2018 15:15 Membranes Ruptured Date/Time: 07/31/2018 15:15 Membranes Rupture Method: Artificial Vaginal Bleeding: Normal Show Datetime: 07/31/2018 13:23 Provider Notified (Name): Dr. Ortiz Notification Reason: provider updated on cervical exam results to include ballotable head. Pr ovider alters plan of care at this time to including delaying AROM until head well applied. Datetime: 07/31/2018 13:21 Cervix, Consistency: Moderate Cervix, Position: Posterior Datetime: 07/31/2018 10:11 Provider Reviewed Strip: Yes
--- NOTE | 2018-08-11 14:52 | DISCHARGE SUMMARY ---
Physician: Gilberto Ortiz MD DATE OF ADMISSION: 07/31/2018 DATE OF DISCHARGE: 08/03/2018 ADMITTING DIAGNOSES 1. A 23-year-old G1, P0 female. 2. A 41-week gestation. 3. Desires induction. DISCHARGE DIAGNOSES 1. A 23-year-old G1, P0 female. 2. A 41-week gestation. 3. Desires induction. 4. Nuchal cord x2. PROCEDURES 1. Pitocin augmentation. 2. Epidural. 3. Failed vacuum. 4. Spontaneous vaginal delivery. 5. Episiotomy with repair. PRESENTING HISTORY: Patient is a 23-year-old, G1, P0 female whose due date was 07/24/2018 and was 41 weeks' EGA. Her has been complicated with nausea and vomiting. She had multiple early visits throughout her . Her labs showed her to be B positive, group B strep negative, rubella immune. LABORATORIES: CBC on admission showed white count of 14.2, hemoglobin 11.4, hematocrit was 34.6, platelets were 194. Day following delivery, her white count had increased to 18.6, hemoglobin has fallen to 9.4, platelets were 155. Day before discharge, her white count was 15.7, hemoglobin was 9.0, hematocrit was 28.1, and her platelets were 184. HOSPITAL COURSE: Patient was admitted, administered Pitocin for labor induction. She had artificial rupture of membranes. Fluid was noted to be clear. She had some episodes of some decelerations, one of which was 8 minutes, but was felt to be secondary to hypotension from her epidural. When treated with ephedrine this responded. At time of delivery, she was noted again to have decelerations and for this reason, a vacuum was placed at +2 to +3 station, pulled with 3 contractions, and the was not delivered; however, since the mother was still continuing to progress, and it was felt that delivery vaginally was still possible, she continued to push, and she spontaneously pushed out a live male infant. That had Apgars of 4 and 8. Baby was delivered right occiput anterior. The patient's course was unremarkable. Her diet was advanced, and she was discharged to home on the . DISCHARGE MEDICATIONS: Colace. We reviewed breast feeding, contraception, as well as infections. TD: 08/11/2018 12:22 MTDEmma
== END 2018-08-03 13:43 | disposition home or self-care (01) | DRG 807 ==
LOC: WFO 07:57 → FBP 07:59 → WFO 08:08 → FBP 08:09
PROVIDERS: ADMIT Obstetrics & Gynecology; ATTEND Obstetrics & Gynecology
PROC: 10E0XZZ Delivery of Products of Conception, External Approach (ICD-10-PCS; principal; 2018-07-31)
PROC: 3E033VJ Introduction of Other Hormone into Peripheral Vein, Percutaneous Approach (ICD-10-PCS; 2018-07-31)
PROC: 10907ZC Drainage of Amniotic Fluid, Therapeutic from Products of Conception, Via Natural or Artificial Opening (ICD-10-PCS; 2018-07-31)
PROC: 0W8NXZZ Division of Female Perineum, External Approach (ICD-10-PCS; 2018-07-31)
DX: O48.0 Post-term pregnancy (principal); Z37.0 Single live birth; O21.0 Mild hyperemesis gravidarum; O76 Abnormality in fetal heart rate and rhythm complicating labor and delivery; O69.82X0 Labor and delivery complicated by other cord entanglement, without compression, not applicable or unspecified; O66.5 Attempted application of vacuum extractor and forceps; O75.89 Other specified complications of labor and delivery; O90.81 Anemia of the puerperium; Z3A.41 41 weeks gestation of pregnancy; Z87.891 Personal history of nicotine dependence
CPT/HCPCS: 36415; 85025; 88307

== ENCOUNTER 2018-09-13 09:52 | Outpatient (CLI) | payer OTHER, MEDICAID | END 2018-09-13 23:59 | disposition home or self-care (01) | LOC: LAB.R 09:52 | PROVIDERS: ATTEND Obstetrics & Gynecology | DX: N89.8 Other specified noninflammatory disorders of vagina (principal) | CPT/HCPCS: 87491; 87591 ==

== ENCOUNTER 2019-03-10 09:38 | Emergency (ER) | payer OTHER, MEDICAID ==
--- NOTE | 2019-03-10 10:04 | ED Physician Documentation ---
PD HPI DYSPNEA - Stated complaint Stated Complaint: COUGH/SOA - Chief complaint Chief Complaint: Resp - History obtained from History obtained from: Patient - History of Present Illness Timing - onset: How many days ago (several) Timing - details: Gradual onset, Still present Worsened by: Coughing Associated symptoms: Cough Similar symptoms before: Has not had sx before - Additional information Additional information: The patient is a 23-year-old female who presents with cough and shortness of breath that started several days ago and was worse last night. Her cough is productive of sputum. She denies fever or chest pain. She reports headache, sore throat, and nausea, without vomiting. She denies history of similar symptoms in the past. She does not smoke cigarettes, but does smoke marijuana. Review of Systems Constitutional: denies: Fever Ears: denies: Tinnitus/ringing Nose: denies: Congestion Throat: reports: Sore throat Cardiac: denies: Chest pain / pressure, Pedal edema Respiratory: reports: Dyspnea, Cough GI: reports: Nausea. denies: Abdominal Pain, Vomiting : denies: Dysuria Skin: denies: Rash Musculoskeletal: denies: Neck pain, Extremity pain Neurologic: reports: Headache. 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 - Present Medications Home Medications: Ambulatory Orders Medication Instructions Recorded Confirmed Ondansetron Odt [Zofran] 4 mg TL Q6H PRN #10 tablet 01/13/18 HYDROcod/ACETAM 5/325 [[place] 5/325] 1 - 2 ea PO Q6H PRN #10 tablet 01/21/18 Pnv No.122/Iron/Folic Acid 01/21/18 [ Multi Tablet] - Allergies Allergies/Adverse Reactions: Allergies Allergy/AdvReac Type Severity Reaction Status Date / Time No Known Drug Allergies Allergy Verified 01/21/18 17:17 - Social History Does the pt smoke?: No Smoking Status: Never smoker Does the pt drink ETOH?: No Does the pt have substance abuse?: No - Immunizations Immunizations are current?: Yes - POLST Patient has POLST: No PD ED PE NORMAL - Vitals Vital signs reviewed: Yes (normal) - General General: Alert and oriented X 3, Well developed/nourished - HEENT HEENT: Atraumatic, Ears normal, Pharynx benign - Neck Neck: Supple, no meningeal sign, No adenopathy - Cardiac Cardiac: RRR, No murmur - Respiratory Respiratory: Clear bilaterally, Other (Cough, without wheezed, rales, or rhonchi.) - Abdomen Abdomen: Soft, Non tender - Back Back: No CVA TTP - Derm Derm: No rash - Extremities Extremities: No edema, No calf tenderness / cord - Neuro Neuro: Alert and oriented X 3, No motor deficit, Normal speech Results - Vitals Vitals: Vital Signs - 24 hr 03/10/19 09:43 Temperature 36.6 C Heart Rate 105 H Respiratory 18 Rate Blood Pressure 115/88 H O2 Saturation 99 Oxygen O2 Source Room air - Labs Labs: Laboratory Tests 03/10/19 10:26 Ur Specific [place] >=1.030 H Urine HCG, Qual NEGATIVE - Rads (name of study) CXR Radiology: Prelim report reviewed, EMP read contemporaneously, See rad report (Normal 2 view chest radiography.) PD MEDICAL DECISION MAKING - ED course Complexity details: reviewed results, re-evaluated patient, considered differential, d/w patient, d/w family ED course: The patient's presentation is most consistent with viral bronchitis. Chest x- ray reveals no infiltrate or effusion; I doubt pneumonia. Treatment in the emergency department included administration of ibuprofen 600 mg orally. I discussed with the patient and her the expected course of illness, symptomatic treatment and outpatient follow-up, as well as potentially worrisome signs or symptoms that should prompt reevaluation in the emergency department. Departure - Departure Disposition: 01 Home, Self Care Clinical Impression: Acute viral bronchitis Condition: Stable Instructions: ED Upper Resp Infec No Abx Tx Comments: Drink plenty of fluids. You can use ibuprofen, up to 600 mg 3 times daily for fever or discomfort. Follow-up with primary physician, or return to the emergency department, if you develop increasing difficulty breathing, or otherwise worsening symptoms.
[2019-03-10 10:36] LABS: HCG UR QUAL NEGATIVE
--- NOTE | 2019-03-10 11:08 | XRAY Report ---
Reason: cough and dyspnea Procedure Date: 03/10/2019 Accession Number: [id number] / [id number] Procedure: XR - Chest 2 View X-Ray CPT Code: 38405 FULL RESULT: EXAM: CHEST RADIOGRAPHY EXAM DATE: 03/10/2019 11:04 AM. CLINICAL HISTORY: Cough and dyspnea. COMPARISON: None. TECHNIQUE: 2 views. FINDINGS: Lungs/Pleura: No focal opacities evident. No peribronchial cuffing or interstitial abnormality. No pleural effusion. No pneumothorax. Normal volumes. Mediastinum: Heart and mediastinal contours are unremarkable. Other: Bilateral nipple shadows are noted. IMPRESSION: Normal 2-view chest radiography. RADIA
[2019-03-10] MEDS ORDERED: IBUPROFEN 600 MG TABLET PO STA (11:15)
[2019-03-10 11:32] VITALS: BP 110/64
== END 2019-03-10 11:31 | disposition home or self-care (01) ==
LOC: ED 09:38
DX: J20.8 Acute bronchitis due to other specified organisms (principal)
CPT/HCPCS: 71046; 81025; 99283; 99284; A9270

== ENCOUNTER 2019-03-15 10:06 | Emergency (ER) | payer OTHER, MEDICAID ==
--- NOTE | 2019-03-15 10:18 | ED Physician Documentation ---
History of Present Illness - Stated complaint Stated Complaint: SOA/COUGH/WHEEZE - Chief complaint Chief Complaint: Resp - Additonal information Additional information: This is a 23-year-old female who denies past medical history who presents with worsening cough and shortness of breath. Patient developed what felt to her like a typical cold 1 week ago, she had Runny nose and cough which was minimally productive. This worsened so she presented to the emergency department an was diagnosed with viral bronchitis. Over the last 48 hours her cough has gotten worse, and she states when she lies down at night she gets coughing fits. She also feels short of breath. She denies any leg swelling or redness, any history of blood clots. She has no anterior chest pain, she has some mild soreness over her bilateral lower ribs after coughing fits. No hemoptysis. No fever. 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 - Present Medications Home Medications: Ambulatory Orders Medication Instructions Recorded Confirmed Ondansetron Odt [Zofran] 4 mg TL Q6H PRN #10 tablet 01/13/18 HYDROcod/ACETAM 5/325 [[place] 5/325] 1 - 2 ea PO Q6H PRN #10 tablet 01/21/18 Pnv No.122/Iron/Folic Acid 01/21/18 [ Multi Tablet] Albuterol Sulf [Ventolin Hfa 1 - 2 puffs INH Q4HR PRN #1 inhaler 03/15/19 Inhaler] Benzonatate [Tessalon Perle] 100 - 200 mg PO TID PRN #30 capsule 03/15/19 - Allergies Allergies/Adverse Reactions: Allergies Allergy/AdvReac Type Severity Reaction Status Date / Time No Known Drug Allergies Allergy Verified 03/15/19 10:12 - Social History Does the pt smoke?: No Smoking Status: Never smoker Does the pt drink ETOH?: No Does the pt have substance abuse?: No - Immunizations Immunizations are current?: Yes - POLST Patient has POLST: No PD ED PE NORMAL - Vitals Vital signs reviewed: Yes - General General: Alert and oriented X 3, No acute distress - Neck Neck: Supple, no meningeal sign - Cardiac Cardiac: RRR, No murmur - Respiratory Respiratory: Other (Scattered bilateral wheeze. No increased work of breathing.) - Abdomen Abdomen: Soft, Non tender, Non distended - Derm Derm: Warm and dry - Extremities Extremities: No deformity, No edema - Neuro Neuro: Alert and oriented X 3 - Psych Psych: Normal mood, Normal affect Results - Vitals Vitals: Vital Signs - 24 hr 03/15/19 03/15/19 10:09 11:30 Temperature 36.4 C L Heart Rate 102 H 76 Respiratory 19 20 Rate Blood Pressure 116/68 O2 Saturation 97 Oxygen O2 Source Room air - EKG (time done) 11:10 Other comments: Other comments (Rate 91, rhythm sinus, there is no ST segment elevation or depression, right atrial enlargement and borderline left axis deviation seen.) PD MEDICAL DECISION MAKING - ED course Complexity details: considered differential (Pneumonia, bronchitis, pneumothorax, pleural effusion, pericardial effusion, heart failure, asthma/bronchospasm, pulmonary embolism) ED course: In triage patient had mild tachycardia, but normal oxygen saturation, on my exam heart rate is within normal limits. Chest x-ray is obtained which shows no acute cardiopulmonary abnormality. EKG did not show any convincing signs of ischemia or dysrhythmia. Bedside [id number] ultrasound showed a grossly normal appearing heart with normal EF and no pericardial effusion. She had improvement of her shortness of breath after a DuoNeb treatment, and her scattered wheeze also improved. Pulmonary embolism was considered, however patient's symptoms follow rhinorrhea and sore throat and other infectious symptoms, and given her improvement after DuoNeb, I think viral URI/bronchitis with possible component of bronchospasm is much more likely. I prescribed her a albuterol inhaler as well as Tessalon Perles for cough, recommended follow-up with her primary care provider, and discussed return precautions including any hemoptysis, leg swelling, not improving symptoms, fever, or any other concerning new symptoms. Patient agreed and was discharged home. Departure - Departure Disposition: 01 Home, Self Care Clinical Impression: Cough, Shortness of breath Condition: Good Instructions: ED Dyspnea Shortness of Breath Follow-Up: Establish,With a PCP as soon as possible [Other] Prescriptions: Albuterol Sulf [Ventolin Hfa Inhaler] 1 - 2 puffs INH Q4HR PRN #1 inhaler PRN Reason: Shortness Of Air/Wheezing Benzonatate [Tessalon Perle] 100 - 200 mg PO TID PRN #30 capsule PRN Reason: Cough Comments: You were seen today for continued cough as well as some shortness of breath, your chest x-ray does not show signs of a pneumonia. I do not see signs of an emergent heart problem. These may be persistent symptoms from a viral illness, and you also may have some degree of bronchospasm worsening your breathing. Please try the albuterol inhaler as well as the Tessalon Perles for your symptoms, you may also take Tylenol and ibuprofen. Return to the emergency department if you have worsening shortness of breath, blood in your sputum, leg swelling, or any other concerning symptoms.
--- NOTE | 2019-03-15 10:56 | XRAY Report ---
Reason: Worsening SOB and cough Procedure Date: 03/15/2019 Accession Number: [id number] / [id number] Procedure: XR - Chest 2 View X-Ray CPT Code: 32004 FULL RESULT: EXAM: CHEST RADIOGRAPHY EXAM DATE: 03/15/2019 10:45 AM. CLINICAL HISTORY: Worsening SOB and cough. COMPARISON: CHEST 2 VIEW 03/10/2019 10:54 AM. TECHNIQUE: 2 views. FINDINGS: Lungs/Pleura: No focal opacities evident. No pleural effusion. No pneumothorax. Normal volumes. Mediastinum: Heart and mediastinal contours are unremarkable. Other: None. IMPRESSION: Normal 2-view chest radiography. RADIA
[2019-03-15] MEDS ORDERED: IPRATROPIUM/ALBUTEROL 3 ML NEB INH STA (11:14)
[2019-03-15 12:20] VITALS: BP 122/75
== END 2019-03-15 12:20 | disposition home or self-care (01) ==
LOC: ED 10:06
DX: R05 Cough (principal); R06.02 Shortness of breath; R00.0 Tachycardia, unspecified; I51.7 Cardiomegaly
CPT/HCPCS: 71046; 93005; 94640; 94664; 99283; 99284

== ENCOUNTER 2019-03-17 10:03 | Outpatient (CLI) | payer OTHER, MEDICAID ==
[2019-03-17 22:21] LABS: TRICHOMONAS VAGINALIS DNA NEGATIVE (NEGATIVE)
== END 2019-03-17 23:59 | disposition home or self-care (01) ==
LOC: LAB.R 10:03
PROVIDERS: ATTEND Obstetrics & Gynecology
DX: R10.2 Pelvic and perineal pain (principal)
CPT/HCPCS: 87491; 87591; 87661

== ENCOUNTER 2020-12-07 08:00 | Outpatient (CLI) | payer OTHER, MEDICAID ==
[2020-12-07 17:47] LABS: BASOPHILS % (AUTO) 0.4 %; EOSINOPHILS # (AUTO) 0.7 10^3/uL (0.0-0.7); EOSINOPHILS % (AUTO) 9.8 %; HCT - HEMATOCRIT 42.7 % (37.0-47.0); HGB - HEMOGLOBIN 14.1 g/dL (12.0-16.0); LYMPHOCYTES # (AUTO) 2.5 10^3/uL (1.5-3.5); LYMPHOCYTES % (AUTO) 36.6 %; MEAN PLATELET VOLUME 11.6 fL (7.9-10.8); MONOCYTES # (AUTO) 0.5 10^3/uL (0.0-1.0); MONOCYTES % (AUTO) 7.4 %; NEUTROPHILS # (AUTO) 3.1 10^3/uL (1.5-6.6); NEUTROPHILS % (AUTO) 45.7 %; PLT - PLATELET COUNT 252 10^3/uL (130-450); RED CELL DISTRIBUTION WIDTH 11.9 % (12.0-15.0); WHITE BLOOD COUNT 6.9 x10^3/uL (4.8-10.8)
[2020-12-07 17:57] LABS: INFECTIOUS MONONUCLEOSIS NEGATIVE (Negative)
[2020-12-07 18:16] LABS: THYROID STIMULATING HORMONE 0.79 uIU/mL (0.34-5.60)
== END 2020-12-07 23:59 | disposition home or self-care (01) ==
LOC: LAB.N 08:00
PROVIDERS: ATTEND Family Medicine
DX: R50.9 Fever, unspecified (principal)
CPT/HCPCS: 36415; 84443; 85025; 85651; 86308; 87275; 87276

== ENCOUNTER 2021-09-06 08:00 | Outpatient (CLI) | payer BC, MEDICAID, OTHER | END 2021-09-06 23:59 | disposition home or self-care (01) | LOC: LAB.N 08:00 | PROVIDERS: ATTEND Physician Assistant | DX: J20.9 Acute bronchitis, unspecified (principal); Z20.822 Contact with and (suspected) exposure to COVID-19 ==

== ENCOUNTER 2022-01-11 13:51 | Emergency (ER) | payer BC ==
[2022-01-11] MEDS ORDERED: LIDOCAINE 2%-EPI 1:100000 20 ML MDV SUBQ STA (15:17)
[2022-01-11] MEDS ORDERED: oxyCODONE 5 MG TABLET PO STA (15:17)
[2022-01-11] MEDS ORDERED: SULFAMETH/TRIMETH DS 800/160 MG TABLET PO STA (17:15)
[2022-01-11] MEDS ORDERED: cephALEXin 250 MG CAPSULE PO STA (17:15)
--- NOTE | 2022-01-11 17:19 | ED Physician Documentation ---
History of Present Illness - Stated complaint Stated Complaint: FEMALE - Chief complaint Chief Complaint: Wound - History obtained from History obtained from: Patient - History of Present Illness Timing: How many days ago (4-5) Pain level max: 8 Pain level now: 6 - Additonal information Additional information: 26-year-old female presents to the emergency department with what feels like a recurrent Bartholin gland cyst abscess. She has had at least 5-6 in the past. She had a failed marsupialization. Nothing makes it better or worse. No fevers. No chills. 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 : None HEENT: None Musculoskeletal: None Derm: None - Past Surgical History Past Surgical History: No /LEAD DATABASE DEVELOPER: Other - Present Medications Home Medications: Ambulatory Orders Medication Instructions Recorded Confirmed Albuterol Sulf [Ventolin Hfa 1 - 2 puffs INH Q4HR PRN #1 inhaler 03/15/19 01/11/22 Inhaler] Montelukast [Singulair] 10 mg PO QPM 01/11/22 01/11/22 Oxycodone HCl/Acetaminophen 1 - 2 each PO Q6H PRN #14 tablet 01/11/22 [Percocet 5-325 mg Tablet] Sulfamethox/Trimeth 800/160 1 each PO BID #14 tablet 01/11/22 [Bactrim Ds 800/160] cephALEXin [Keflex] 500 mg PO Q6H #28 cap 01/11/22 - Allergies Allergies/Adverse Reactions: Allergies Allergy/AdvReac Type Severity Reaction Status Date / Time No Known Drug Allergies Allergy Verified 01/11/22 13:55 - Social History Does the pt smoke?: No Smoking Status: Never smoker Does the pt drink ETOH?: Yes Does the pt have substance abuse?: No - Immunizations Immunizations are current?: Yes - POLST Patient has POLST: No PD ED PE NORMAL - Vitals Vital signs reviewed: Yes - General General: Alert and oriented X 3, No acute distress - Female Female : Sealer Aircraft present (Irma JAMES), Other (Enlarged Bartholin gland cyst to the left posterior labia. Approximately a 3 x 3 cm.) - Derm Derm: Warm and dry - Neuro Neuro: Alert and oriented X 3 Results - Vitals Vitals: Vital Signs - 24 hr 01/11/22 01/11/22 13:57 17:26 Temperature 37.2 C 36.3 C L Heart Rate 86 70 Respiratory 16 Rate Blood Pressure 100/58 L 112/60 O2 Saturation 98 99 Oxygen O2 Source Room air - Labs Labs: Microbiology 01/11/22 17:15 Wound Culture - Preliminary Abscess Procedures - Abscess I&D (location) Left labia Preparation: Chlorhexadine, Lidocaine 2% Incision: Incised with scalpel, Purulent drainage, Culture obtained Other: Pt tolerated well, Dressing applied, Antibiotic prescribed PD MEDICAL DECISION MAKING - ED course Complexity details: considered differential, d/w patient ED course: Patient with a recurrent Bartholin glands abscess. This was drained. Approximately 6 to 7 cc of pus were removed. Wound culture sent. We will place on antibiotics and pain medication for home. Encourage sitz bath to continue drainage. Recommend that she follow-up with gynecology for further care. Patient counseled regarding signs and symptoms for which I believe and urgent re-evaluation would be necessary. Patient with good understanding of and agreement to plan and is comfortable going home at this time This document was made in part using voice recognition software. While efforts are made to proofread this document, sound alike and grammatical errors may occur. Departure - Departure Disposition: 01 Home, Self Care Clinical Impression: Abscess of Bartholin's gland Condition: Good Instructions: Sitz Bath, ED Bartholins Cyst IandD Follow-Up: your,doctor in 3 days for recheck [Other] [facility] [Provider Group] Prescriptions: Sulfamethox/Trimeth 800/160 [Bactrim Ds 800/160] 1 each PO BID #14 tablet cephALEXin [Keflex] 500 mg PO Q6H #28 cap Oxycodone HCl/Acetaminophen [Percocet 5-325 mg Tablet] 1 - 2 each PO Q6H PRN #14 tablet PRN Reason: pain Comments: Your prescriptions were sent to [facility] in [place]. Take all antibiotics until gone. Return if you worsen. Follow-up with your doctor for further care and a wound check within 3 days. If they are unable to see you, you can return here for a wound check. I am prescribing a short course of narcotic pain medication for you. These are potentially dangerous and addictive medications that should be used carefully. These medications may constipate you. Take an knvu-moe-rmdsymp stool softener (docusate) twice daily with plenty of water while taking these medications. If you go 24 hours without a bowel movement, take lula-bex-kcgntox miralax, per package instructions. Do not drink or drive while taking these medications. If you received narcotic or sedating medications while in the emergency department, do not drive for 24 hours. Store this medication in a safe, secure place and out of reach of children. It is a violation of federal law to give or sell this medication to another person or to use in a manner other than prescribed. The ED will not refill narcotic prescriptions, including prescriptions lost or stolen. To dispose of unwanted medications: 1. [facility] at [address] in [place] has a medication drop box. They accept prescription medications (in pill form) Thursday through Thursday 9:00 a.m. to 5:00 p.m. 2. The [facility] accepts prescription medications (in pill form only) for disposal year round. Call for more information. 3. Contact the [facility] for the next [facility] sponsored prescription drug collection event. , [phone], or [phone]; Discharge Date/Time: 01/11/22 17:26
[2022-01-11 17:27] VITALS: BP 112/60
== END 2022-01-11 17:26 | disposition home or self-care (01) ==
LOC: ED 13:51
DX: N75.0 Cyst of Bartholin's gland (principal)
CPT/HCPCS: 56420; 87070; 87077; 87181; 87205; 99283; A9270

== ENCOUNTER 2022-05-31 13:39 | Emergency (ER) | payer BC ==
[2022-05-31 13:55] VITALS: BP 111/62
[2022-05-31 14:31] LABS: BILIRUBIN,URINE NEGATIVE (NEGATIVE); GLUCOSE, URINE (UA) NEGATIVE (NEGATIVE); KETONES,URINE (UA) NEGATIVE (NEGATIVE); LEUKOCYTE ESTERASE, URINE NEGATIVE (NEGATIVE); NITRITE,URINE NEGATIVE (NEGATIVE); OCCULT BLOOD,URINE NEGATIVE (NEGATIVE); PROTEIN,URINE NEGATIVE (NEGATIVE); UROBILINOGEN,URINE 0.2 (NORMAL) E.U./dL (NORMAL)
[2022-05-31 14:33] LABS: CLARITY,URINE CLEAR (CLEAR); HCG UR QUAL NEGATIVE
[2022-05-31 14:39] LABS: BASOPHILS % (AUTO) 0.3 %; EOSINOPHILS # (AUTO) 0.6 10^3/uL (0.0-0.7); EOSINOPHILS % (AUTO) 5.6 %; HCT - HEMATOCRIT 43.3 % (37.0-47.0); HGB - HEMOGLOBIN 14.2 g/dL (12.0-16.0); LYMPHOCYTES # (AUTO) 2.5 10^3/uL (1.5-3.5); LYMPHOCYTES % (AUTO) 23.5 %; MEAN CORPUSCULAR HEMOGLOBIN 31.8 pg (27.0-31.0); MEAN CORPUSCULAR HGB CONC 32.8 g/dL (32.0-36.0); MEAN CORPUSCULAR VOLUME 96.9 fL (81.0-99.0); MEAN PLATELET VOLUME 10.8 fL (7.9-10.8); MONOCYTES # (AUTO) 0.5 10^3/uL (0.0-1.0); MONOCYTES % (AUTO) 4.3 %; NEUTROPHILS # (AUTO) 7.1 10^3/uL (1.5-6.6); NEUTROPHILS % (AUTO) 66.1 %; PLT - PLATELET COUNT 288 10^3/uL (130-450); RED BLOOD COUNT 4.47 10^6/uL (4.20-5.40); RED CELL DISTRIBUTION WIDTH 11.7 % (12.0-15.0); WHITE BLOOD COUNT 10.7 x10^3/uL (4.8-10.8)
[2022-05-31 14:55] LABS: ALBUMIN 3.9 g/dL (3.2-5.5); ALBUMIN/GLOBULIN RATIO 1.1 (1.0-2.2); BILIRUBIN,TOTAL 0.7 mg/dL (0.2-1.0); CALCIUM 9.5 mg/dL (8.5-10.3); CREATININE 0.7 mg/dL (0.4-1.0); PHOSPHORUS 3.4 mg/dL (2.5-4.6); POTASSIUM 4.4 mmol/L (3.5-5.0); TOTAL PROTEIN 7.3 g/dL (6.7-8.2)
--- NOTE | 2022-05-31 14:55 | ED Physician Documentation ---
History of Present Illness - Stated complaint Stated Complaint: SEIZURE - Chief complaint Chief Complaint: Neuro - History obtained from History obtained from: Patient, Family - History of Present Illness Pain level max: 0 Pain level now: 0 - Additonal information Additional information: 26-year-old female came to the emergency department with her significant other today. She states last night she stood up to give him a hug felt lightheaded, dizzy, vision went dim and she felt like she could not speak and was shaking. Lasted for about 10 seconds. Was not confused afterwards. No vomiting. No tongue biting. No urinary incontinence. Nothing made it better or worse. She does have a history of near syncope. She states that she has never fully passed out however. She did not fully lose consciousness last night. No fevers. No chills. No cough. No congestion. Denies any possibility of . Currently asymptomatic. 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 : None HEENT: None Musculoskeletal: None Derm: None - Past Surgical History Past Surgical History: No /ATM TECHNICIAN: Other - Present Medications Home Medications: Ambulatory Orders Medication Instructions Recorded Confirmed Albuterol Sulf [Ventolin Hfa 1 - 2 puffs INH Q4HR PRN #1 inhaler 03/15/19 01/11/22 Inhaler] Montelukast [Singulair] 10 mg PO QPM 01/11/22 01/11/22 Oxycodone HCl/Acetaminophen 1 - 2 each PO Q6H PRN #14 tablet 01/11/22 [Percocet 5-325 mg Tablet] Sulfamethox/Trimeth 800/160 1 each PO BID #14 tablet 01/11/22 [Bactrim Ds 800/160] cephALEXin [Keflex] 500 mg PO Q6H #28 cap 01/11/22 - Allergies Allergies/Adverse Reactions: Allergies Allergy/AdvReac Type Severity Reaction Status Date / Time No Known Drug Allergies Allergy Verified 01/11/22 13:55 - Social History Does the pt smoke?: No Smoking Status: Never smoker Does the pt drink ETOH?: Yes Does the pt have substance abuse?: No - Immunizations Immunizations are current?: Yes - POLST Patient has POLST: No PD ED PE NORMAL - Vitals Vital signs reviewed: Yes - General General: Alert and oriented X 3, No acute distress - HEENT HEENT: Atraumatic, PERRL, Ears normal, Moist mucous membranes, Pharynx benign - Neck Neck: Supple, no meningeal sign, No JVD, No bruit - Cardiac Cardiac: RRR, No murmur, Strong equal pulses - Respiratory Respiratory: No respiratory distress, Clear bilaterally - Abdomen Abdomen: Soft, Non tender, Non distended - Back Back: No CVA TTP, No spinal TTP - Derm Derm: Warm and dry, No rash - Extremities Extremities: No edema, No calf tenderness / cord - Neuro Neuro: Alert and oriented X 3, living specialist 2-12 intact, No motor deficit, No sensory deficit, Normal speech Eye Opening: Spontaneous Motor: Obeys Commands Verbal: Oriented GCS Score: 15 - Psych Psych: Normal mood, Normal affect Results - Vitals Vitals: Vital Signs - 24 hr 05/31/22 13:44 Temperature 36 C L Heart Rate 86 Respiratory 16 Rate Blood Pressure 111/62 O2 Saturation 100 Oxygen O2 Source Room air - EKG (time done) 1448 Rate: Rate (enter#) (58) Rhythm: NSR [place]: Normal Intervals: Other (short OK) QRS: Normal Ischemia: Normal ST segments - Labs Labs: Laboratory Tests 05/31/22 05/31/22 05/31/22 13:58 14:32 14:32 WBC 10.7 RBC 4.47 Hgb 14.2 Hct 43.3 MCV 96.9 MCH 31.8 H MCHC 32.8 RDW 11.7 L Plt Count 288 MPV 10.8 Neut # (Auto) 7.1 H Lymph # (Auto) 2.5 [place] # (Auto) 0.5 Eos # (Auto) 0.6 Baso # (Auto) 0.0 Absolute Nucleated RBC 0.00 Nucleated RBC % 0.0 Sodium 137 Potassium 4.4 Chloride 103 Carbon Dioxide 24 Anion Gap 10.0 BUN 5 L Creatinine 0.7 Estimated GFR (MDRD) 102 Glucose 88 Calcium 9.5 Phosphorus 3.4 Magnesium 2.0 Total Bilirubin 0.7 AST 16 ALT 11 Alkaline Phosphatase 38 L Total Protein 7.3 Albumin 3.9 Globulin 3.4 Albumin/Globulin Ratio 1.1 Lipase 35 TSH Free T4 Urine Color YELLOW Urine Clarity CLEAR Urine pH 6.0 Ur Specific [place] 1.020 Urine Protein NEGATIVE Urine Glucose (UA) NEGATIVE Urine Ketones NEGATIVE Urine Occult Blood NEGATIVE Urine Nitrite NEGATIVE Urine Bilirubin NEGATIVE Urine Urobilinogen 0.2 (NORMAL) Ur Leukocyte Esterase NEGATIVE Ur Microscopic Review NOT INDICATED Urine Culture Comments NOT INDICATED Urine HCG, Qual NEGATIVE 05/31/22 14:32 WBC RBC Hgb Hct MCV MCH MCHC RDW Plt Count MPV Neut # (Auto) Lymph # (Auto) [place] # (Auto) Eos # (Auto) Baso # (Auto) Absolute Nucleated RBC Nucleated RBC % Sodium Potassium Chloride Carbon Dioxide Anion Gap BUN Creatinine Estimated GFR (MDRD) Glucose Calcium Phosphorus Magnesium Total Bilirubin AST ALT Alkaline Phosphatase Total Protein Albumin Globulin Albumin/Globulin Ratio Lipase TSH 1.38 Free T4 0.84 Urine Color Urine Clarity Urine pH Ur Specific [place] Urine Protein Urine Glucose (UA) Urine Ketones Urine Occult Blood Urine Nitrite Urine Bilirubin Urine Urobilinogen Ur Leukocyte Esterase Ur Microscopic Review Urine Culture Comments Urine HCG, Qual - Rads (name of study) head CT Radiology: Final report received, EMP read contemporaneously, See rad report (head CT) PD MEDICAL DECISION MAKING - ED course Complexity details: reviewed results, re-evaluated patient, considered differential, d/w patient, d/w family ED course: Patient is a 26-year-old female who sounds like she had a near syncopal event last night. Does not appear consistent with a seizure given her history. No significant findings on laboratory testing, EKG or head CT. She is already being evaluated by cardiology. Has a echocardiogram scheduled. Patient is asymptomatic here. We will continue supportive care and follow-up with her doctor. Patient counseled regarding signs and symptoms for which I believe and urgent re-evaluation would be necessary. Patient with good understanding of and agreement to plan and is comfortable going home at this time This document was made in part using voice recognition software. While efforts are made to proofread this document, sound alike and grammatical errors may occur. Departure - Departure Disposition: 01 Home, Self Care Clinical Impression: Near syncope Condition: Good Instructions: ED Near Syncope Unkn Follow-Up: JEANNE MENDEZ DO [Primary Care Provider] - Within 1 week Comments: Please follow-up with your doctor for further care. Continue your work-up with your organic section technical lead as well. Your head CT and laboratory testing did not show any acute abnormalities today. Your EKG does not show any acute abnormalities eith er other than a short OK interval. This can be followed up with your organic section technical lead Discharge Date/Time: 05/31/22 16:00
[2022-05-31 15:08] LABS: THYROID STIMULATING HORMONE 1.38 uIU/mL (0.34-5.60)
[2022-05-31 15:10] LABS: FREE T4 (FREE THYROXINE) 0.84 ng/dL (0.58-1.64)
--- NOTE | 2022-05-31 15:20 | CT Report ---
PROCEDURE: CT brain without contrast INDICATIONS: seizure vs syncope TECHNIQUE: Noncontrast 4.5 mm thick angled axial sections acquired from the foramen magnum to the vertex. For r adiation dose reduction, the following was used: automated exposure control, adjustment of mA and/or kV according to patient size. COMPARISON: None. FINDINGS: Image quality: Excellent. CSF spaces: Basal cisterns are patent. No extra-axial fluid collections. Ventricles are normal in size and shape. Brain: No midline shift. No intracranial masses or hemorrhage. Yu-white matter interface is norm al. Skull and face: Calvarium and visualized facial bones are intact, without suspicious lesions. Sinuses: Visualized sinuses and mastoids are clear. IMPRESSION: Normal CT brain Reviewed by: Clif Ahuja MD on 05/31/2022 2:19 PM AK Approved by: Clif Ahuja MD on 05/31/2022 2:19 PM AKST Station ID: [id number]
== END 2022-05-31 16:00 | disposition home or self-care (01) ==
LOC: ED 13:39
DX: R55 Syncope and collapse (principal); R42 Dizziness and giddiness; I45.89 Other specified conduction disorders
CPT/HCPCS: 36415; 80053; 81001; 81003; 81025; 83690; 83735; 84100; 84439; 84443; 85025; 87086; 93005; 99283; 99284

== ENCOUNTER 2022-06-07 15:32 | Emergency (ER) | payer BC ==
[2022-06-07] MEDS ORDERED: predniSONE 20 MG TABLET PO STA (17:27)
[2022-06-07] MEDS ORDERED: IPRATROPIUM/ALBUTEROL 3 ML NEB INH STA (17:27)
--- NOTE | 2022-06-07 17:29 | ED Physician Documentation ---
History of Present Illness - Stated complaint Stated Complaint: SOA - Chief complaint Chief Complaint: Resp - History obtained from History obtained from: Patient - History of Present Illness Timing: Today Pain level max: 0 Pain level now: 0 - Additonal information Additional information: Patient is a 26-year-old female who presents to the emergency department increased difficulty breathing over the past several days. Dry cough as well. Mild nasal congestion. She is on albuterol and montelukast at home. She states this is not helping with her wheezing. Nothing makes it better or worse. Denies any possibility of . 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 : None HEENT: None Musculoskeletal: None Derm: None - Past Surgical History Past Surgical History: No /MANAGER DIESEL: Other - Present Medications Home Medications: Ambulatory Orders Medication Instructions Recorded Confirmed Albuterol Sulf [Ventolin Hfa 1 - 2 puffs INH Q4HR PRN #1 inhaler 03/15/19 01/11/22 Inhaler] Montelukast [Singulair] 10 mg PO QPM 01/11/22 01/11/22 Oxycodone HCl/Acetaminophen 1 - 2 each PO Q6H PRN #14 tablet 01/11/22 [Percocet 5-325 mg Tablet] Sulfamethox/Trimeth 800/160 1 each PO BID #14 tablet 01/11/22 [Bactrim Ds 800/160] cephALEXin [Keflex] 500 mg PO Q6H #28 cap 01/11/22 Albuterol Sulf [Ventolin Hfa 1 - 2 puffs INH Q4HR PRN #1 each 06/07/22 Inhaler] predniSONE [Deltasone] 40 mg PO DAILY #10 tablet 06/07/22 - Allergies Allergies/Adverse Reactions: Allergies Allergy/AdvReac Type Severity Reaction Status Date / Time No Known Drug Allergies Allergy Verified 01/11/22 13:55 - Social History Does the pt smoke?: No Smoking Status: Never smoker Does the pt drink ETOH?: Yes Does the pt have substance abuse?: No - Immunizations Immunizations are current?: Yes - POLST Patient has POLST: No PD ED PE NORMAL - Vitals Vital signs reviewed: Yes - General General: Alert and oriented X 3, No acute distress - HEENT HEENT: Moist mucous membranes - Neck Neck: Supple, no meningeal sign - Cardiac Cardiac: RRR - Respiratory Respiratory: No respiratory distress, Other (mild wheezing B) - Abdomen Abdomen: Soft, Non tender, Non distended - Derm Derm: Warm and dry - Extremities Extremities: No edema, No calf tenderness / cord - Neuro Neuro: Alert and oriented X 3 Results - Vitals Vitals: Vital Signs - 24 hr 06/07/22 06/07/22 06/07/22 15:43 17:49 18:32 Temperature 37.1 C Heart Rate 76 88 78 Respiratory 18 16 18 Rate Blood Pressure 116/66 108/64 O2 Saturation 100 98 Oxygen O2 Source Room air PD MEDICAL DECISION MAKING - ED course Complexity details: re-evaluated patient, considered differential, d/w patient ED course: Patient with what appears to be an asthma exacerbation. She was given steroids and breathing treatment here. She requests a refill of her albuterol. Her lungs are clear to auscultation bilaterally on serial exam. No hypoxia. No respiratory distress. No fever. Patient counseled regarding signs and symptoms for which I believe and urgent re-evaluation would be necessary. Patient with good understanding of and agreement to plan and is comfortable going home at this time This document was made in part using voice recognition software. While efforts are made to proofread this document, sound alike and grammatical errors may occur. Departure - Departure Disposition: 01 Home, Self Care Clinical Impression: Asthma Qualifiers: Asthma severity: unspecified severity Asthma persistence: unspecified Asthma complication type: with acute exacerbation Qualified Code(s): J45.901 - Unspecified asthma with (acute) exacerbation Condition: Good Instructions: ED Reactive Airway Disease Follow-Up: JEANNE MENDEZ DO [Primary Care Provider] - As Needed Prescriptions: Albuterol Sulf [Ventolin Hfa Inhaler] 1 - 2 puffs INH Q4HR PRN #1 each PRN Reason: Shortness Of Air/Wheezing predniSONE [Deltasone] 40 mg PO DAILY #10 tablet Comments: Your prescriptions were sent to [facility] in [place]. Please follow-up with your doctor for further care. Return if you worsen. Discharge Date/Time: 06/07/22 18:31
[2022-06-07 18:32] VITALS: BP 108/64
== END 2022-06-07 18:31 | disposition home or self-care (01) ==
LOC: ED 15:32
DX: J45.901 Unspecified asthma with (acute) exacerbation (principal)
CPT/HCPCS: 94640; 99283; 99284; J7512

== ENCOUNTER 2023-05-17 11:34 | Emergency (ER) | payer BC, OTHER ==
--- NOTE | 2023-05-17 13:19 | ED Physician Documentation ---
History of Present Illness - Stated complaint Stated Complaint: - Chief complaint Chief Complaint: Wound - Additonal information Additional information: 27-year-old female presents emergency department for evaluation of recurrent left Bartholin gland abscess. This has been a recurrent problem for many years. 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 This last flare began about a week ago when she was seen in office and was started on amoxicillin. She reports that there was scant drainage at that time so no I&D was performed. However despite the amoxicillin she has increased swelling and now purulent drainage. No fevers. She is not a diabetic. 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 HEENT: None Musculoskeletal: None Derm: None - Past Surgical History Past Surgical History: No /WORK ORDER CLERK: Other - Present Medications Home Medications: Ambulatory Orders Medication Instructions Recorded Confirmed Albuterol Sulf [Ventolin Hfa 1 - 2 puffs INH Q4HR PRN #1 inhaler 03/15/19 01/11/22 Inhaler] Montelukast [Singulair] 10 mg PO QPM 01/11/22 01/11/22 Oxycodone HCl/Acetaminophen 1 - 2 each PO Q6H PRN #14 tablet 01/11/22 [Percocet 5-325 mg Tablet] Sulfamethox/Trimeth 800/160 1 each PO BID #14 tablet 01/11/22 [Bactrim Ds 800/160] cephALEXin [Keflex] 500 mg PO Q6H #28 cap 01/11/22 Albuterol Sulf [Ventolin Hfa 1 - 2 puffs INH Q4HR PRN #1 each 06/07/22 Inhaler] predniSONE [Deltasone] 40 mg PO DAILY #10 tablet 06/07/22 - Allergies Allergies/Adverse Reactions: Allergies Allergy/AdvReac Type Severity Reaction Status Date / Time No Known Drug Allergies Allergy Verified 05/17/23 11:54 - Social History Does the pt smoke?: No Smoking Status: Never smoker Does the pt drink ETOH?: Yes Does the pt have substance abuse?: No - Immunizations Immunizations are current?: Yes - POLST Patient has POLST: No PD ED PE NORMAL - General General: Alert and oriented X 3, No acute distress - Cardiac Cardiac: RRR, No murmur - Female Female : Critical Care Specialist present, Other (Left inner labial abscess with moderate amount of purulent drainage noted.) Results - Vitals Vitals: Vital Signs - 24 hr 05/17/23 11:50 Temperature 36.7 C Heart Rate 77 Respiratory 15 Rate Blood Pressure 112/67 O2 Saturation 100 Oxygen O2 Source Room air Procedures - Abscess I&D (location) Left Bartholin gland abscess Preparation: Betadine Incision: Incised with scalpel, Purulent drainage, Loculations broken, Culture obtained, Other (Through and through plastic tubing was placed to prevent closure of the wound) Other: Pt tolerated well PD Medical Decision Making - ED course Complexity details: d/w patient ED course: 27-year-old female here with a recurrent left labial Bartholin gland abscess. Currently on amoxicillin. Culture was obtained. The abscess was I&D at the bedside and through and through IV tubing was placed to prevent closure of the wound. She is advised to keep this in place for about 1 week. Advise close follow-up with PCP/OB this week. I discussed with patient that if the culture grew microbial dave that was not sensitive to the amoxicillin, but her symptoms were resolving with the antibiotics she would not need a new or different antibiotic prescription. She is discharged home in stable condition with usual emergent return precautions discussed. Departure - Departure Disposition: 01 Home, Self Care Clinical Impression: Bartholin's gland abscess Condition: Stable Record reviewed to determine appropriate education?: Yes Comments: Dylan we did do an incision and drainage of your left Bartholin gland abscess. We placed tubing within the wound that should remain for about 1 week to prevent premature closure of the wound and to allow further drainage if necessary. You can continue the antibiotics. We will notify you if a different prescription is necessary. However with most abscesses simple drainage is sufficient and antibiotics are not typically required. If you find that the symptoms are not improving despite the antibiotics and now drainage please return to the ER. Otherwise would like you to follow closely with your OB provider. The tubing that we placed should remain for about 1 week. I encourage you to do sitz bath's once or twice daily to allow further drainage of the wound to occur.
[2023-05-17 13:55] VITALS: BP 100/41; O2SAT 95
== END 2023-05-17 13:45 | disposition home or self-care (01) ==
LOC: ED 11:34
DX: N75.1 Abscess of Bartholin's gland (principal)
CPT/HCPCS: 56420; 87070; 87181; 87205

== ENCOUNTER 2023-12-20 18:36 | Emergency (ER) | payer OTHER ==
--- NOTE | 2023-12-20 19:44 | XRAY Report ---
PROCEDURE: Chest 2V INDICATIONS: Cough TECHNIQUE: 2 views of the chest were acquired. COMPARISON: CXR 03/15/2019. FINDINGS: Surgical changes and devices: None. Lungs and pleura: No pleural effusions or pneumothorax. Lungs are clear. Mediastinum: Mediastinal contours appear normal. Heart size is normal. Bones and chest wall: No suspicious bony lesions. Overlying soft tissues appear unremarkable. IMPRESSION: No acute cardiopulmonary process. Reviewed by: Kory Queen MD on 12/20/2023 7:43 PM PDT Approved by: Kory Queen MD on 12/20/2023 7:43 PM PDT Station ID: [id number]
--- NOTE | 2023-12-20 20:45 | ED Physician Documentation ---
PD HPI URI - Stated complaint Stated Complaint: NAUSE/BODY ACHES - Chief complaint Chief Complaint: Resp - History obtained from History obtained from: Patient - Additional information Additional information: Patient is a 28-year-old female without any significant past medical history presenting for evaluation of feeling body aches, sore throat, productive cough, nausea for the past 9 days. She reports that her younger child had similar symptoms but has been getting better. She has been able to tolerate p.o. intake mostly with liquids. No vomiting or diarrhea. She does have an albuterol inhal er and states that has not helped with her cough or sore throat. She has occasionally used acetaminophen and ibuprofen but none today. No recent travel. 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 : None HEENT: None Musculoskeletal: None Derm: None - Past Surgical History Past Surgical History: No /YARN WEIGHER: Other - Present Medications Home Medications: Ambulatory Orders Medication Instructions Recorded Confirmed Albuterol Sulf [Ventolin Hfa 1 - 2 puffs INH Q4HR PRN #1 inhaler 03/15/19 12/20/23 Inhaler] Ondansetron Odt [Zofran] 4 mg TL Q6H PRN #10 tablet 12/20/23 - Allergies Allergies/Adverse Reactions: Allergies Allergy/AdvReac Type Severity Reaction Status Date / Time No Known Drug Allergies Allergy Verified 12/20/23 18:51 - Social History Does the pt smoke?: No Smoking Status: Never smoker Does the pt drink ETOH?: Yes Does the pt have substance abuse?: No - Immunizations Immunizations are current?: Yes - POLST Patient has POLST: No PD ED PE NORMAL - General General: Alert and oriented X 3, No acute distress, Well developed/nourished - HEENT HEENT: Atraumatic, Moist mucous membranes, Pharynx benign - Neck Neck: Supple, no meningeal sign - Cardiac Cardiac: RRR, Strong equal pulses - Respiratory Respiratory: No respiratory distress, Clear bilaterally - Abdomen Abdomen: Normal bowel sounds, Soft, Non tender, Non distended - Derm Derm: Warm and dry - Neuro Neuro: Normal speech Results - Vitals Vitals: Vital Signs - 24 hr 12/20/23 12/20/23 12/20/23 18:52 21:49 21:50 Temperature 36.7 C Heart Rate 101 H 94 94 Respiratory 18 16 16 Rate Blood Pressure 134/76 H 95/68 95/68 O2 Saturation 100 98 98 Oxygen O2 Source Room air - Labs Labs: Laboratory Tests 12/20/23 12/20/23 18:55 21:00 Nasal Adenovirus (PCR) NOT DETECTED Nasal B. parapertussis DNA (PCR) NOT DETECTED Nasal Coronavir 229E PCR NOT DETECTED Nasal Coronavir HKU1 PCR NOT DETECTED Nasal Coronavir NL63 PCR NOT DETECTED Nasal Coronavir OC43 PCR NOT DETECTED Nasal Enterovir/Rhinovir PCR DETECTED A Nasal Influenza B PCR NOT DETECTED Nasal Influenza A PCR NOT DETECTED Nasal Parainfluen 1 PCR NOT DETECTED Nasal Parainfluen 2 PCR NOT DETECTED Nasal Parainfluen 3 PCR NOT DETECTED Nasal Parainfluen 4 PCR NOT DETECTED Nasal RSV (PCR) NOT DETECTED Nasal B.pertussis DNA PCR NOT DETECTED Nasal C.pneumoniae (PCR) NOT DETECTED Artemio Human Metapneumo PCR NOT DETECTED Nasal M.pneumoniae (PCR) NOT DETECTED Nasal SARS-CoV-2 (PCR) NOT DETECTED Group A Strep Rapid Negative PD Medical Decision Making - ED course Complexity details: reviewed results, d/w patient ED course: Patient is a 28-year-old female presenting for evaluation of cough, body aches, nausea for over a week. Vital signs are stable. Heart rate 101 at triage but during my exam appears within normal limits. Abdominal exam is benign. Clin ically appears hydrated. Rapid strep is negative. Respiratory swab is positive for rhinovirus. Chest x-ray which I reviewed is negative for pneumonia. Patient given a dose of Decadron for her sore throat as well as Zofran for the nausea. She is counseled on continued supportive care and advised on concerning symptoms to return for. Departure - Departure Disposition: 01 Home, Self Care Clinical Impression: Rhinovirus Condition: Stable Instructions: ED Viral Syndrome Prescriptions: Ondansetron Odt [Zofran] 4 mg TL Q6H PRN #10 tablet PRN Reason: Nausea / Vomiting Comments: Your rapid strep test is negative. Your chest x-ray does not show signs of pneumonia. Your respiratory swab is positive for enterovirus/rhinovirus which is a respiratory virus causing symptoms of the common cold. I have given you a dose of Decadron which is a long-acting steroid which should help with the discomfort you are feeling in your throat. Please continue with acetaminophen or ibuprofen as needed as well as hydration. Return to the ER if you develop worsening symptoms. I have sent a prescription for an antinausea medication to [facility] in [place]. Forms: PCP List Discharge Date/Time: 12/20/23 21:51
[2023-12-20] MEDS: ONDANSETRON ODT 4 MG TABLET TL STA (20:59)
[2023-12-20 21:01] LABS: B. PARAPERTUSSIS- RESP PCR PAN NOT DETECTED; B. PERTUSSIS- RESP PCR PANEL NOT DETECTED; C. PNEUMONIAE- RESP PCR PANEL NOT DETECTED; CORONAVIRUS 229E-RESP PCR NOT DETECTED; CORONAVIRUS HKU1-RESP PCR NOT DETECTED; CORONAVIRUS NL63-RESP PCR NOT DETECTED; CORONAVIRUS OC43-RESP PCR NOT DETECTED; HUMAN METAPNEUMOVIRUS NOT DETECTED; INFLUENZA A- RESP PCR PANEL NOT DETECTED; INFLUENZA B - RESP PCR PANEL NOT DETECTED; M. PNEUMONIAE- RESP PCR PANEL NOT DETECTED; PARAINFLUENZA VIRUS 1 NOT DETECTED; PARAINFLUENZA VIRUS 2 NOT DETECTED; PARAINFLUENZA VIRUS 3 NOT DETECTED; PARAINFLUENZA VIRUS 4 NOT DETECTED; RHINOVIRUS/ENTEROVIRUS DETECTED; RSV- RESP PCR PANEL NOT DETECTED; SARS-CoV-2 -RESP PCR PANEL NOT DETECTED
[2023-12-20 21:13] LABS: RAPID STREP SCREEN Negative (Negative)
[2023-12-20] MEDS: CHERRY SYRUP 10 ML UDC PO ONE (21:45)
[2023-12-20] MEDS: DEXAMETHASONE 10 MG/ML VIAL PO STA (21:45)
[2023-12-20 21:50] VITALS: BP 95/68; O2SAT 98
== END 2023-12-20 21:51 | disposition home or self-care (01) ==
LOC: ED 18:36
DX: B34.8 Other viral infections of unspecified site (principal); Z20.818 Contact with and (suspected) exposure to other bacterial communicable diseases; Z20.822 Contact with and (suspected) exposure to COVID-19; Z20.828 Contact with and (suspected) exposure to other viral communicable diseases
CPT/HCPCS: 71046; 87070; 87430; 87633; 99284; A9270; Q0162